=== PATIENT | male | born 1950 | race Caucasian/White ===

== ENCOUNTER 2018-10-23 01:58 | Emergency (ER) | payer MEDICARE, OTHER ==
[2018-10-23] MEDS ORDERED: Lidocaine 2% Jelly 10 ML Urojet MUCMEM ONE (02:52)
[2018-10-23 03:53] LABS: ANION GAP 15.4
--- NOTE | 2018-10-23 04:19 | EDM.PDOC ---
ED HPI GENERAL MEDICAL PROBLEM - General Chief Complaint: Genitourinary Problem Stated Complaint: CANT PEE, BLEEDING Time Seen by Provider: 10/23/18 03:00 Source of Information: Reports: Patient History Limitations: Reports: No Limitations - History of Present Illness INITIAL COMMENTS - FREE TEXT/NARRATIVE: ED ambulatory with c/o unable to urinate. Last 930pm. Report TURP on , home with catheter, removed on Thursday. Since voiding with bloody urine and passing some small clots. No fever or chills. No dizziness. Notes 2nd TURP. First with "eleuterio santamariaer" Left Pelvic Pain Score (Numeric/FACES): 10 Past Medical History Cardiovascular History: Reports: Hypertension Gastrointestinal History: Reports: GERD Genitourinary History: Reports: BPH, Retention, Urinary Endocrine/Metabolic History: Reports: Diabetes, Type II - Past Surgical History Male Surgical History: Reports: TURP-Transurethral Resection of Prostate Social & Family History - Tobacco Use Smoking Status *Q: Unknown Ever Smoked - Caffeine Use Caffeine Use: Reports: Coffee, Soda - Recreational Drug Use Recreational Drug Use: No ED ROS GENERAL - Review of Systems Review Of Systems: ROS reveals no pertinent complaints other than HPI. ED EXAM, RENAL/ - Physical Exam Exam: See Below Exam Limited By: No Limitations General Appearance: Alert, Moderate Distress Eye Exam: Bilateral Eye: EOMI Ears: Normal External Exam, Hearing Grossly Normal Nose: Normal Inspection Throat/Mouth: Normal Inspection Head: Atraumatic, Normocephalic Neck: Normal Inspection, Full Range of Motion Respiratory/Chest: Lungs Clear, Normal Breath Sounds Cardiovascular: Normal Peripheral Pulses, Regular Rate, Rhythm GI/Abdominal: Normal Bowel Sounds, Soft, Tender (suprapubic) Back Exam: Normal Inspection Extremities: Normal Inspection Neurological: Alert, Oriented, Normal Cognition Psychiatric: Normal Affect Skin Exam: Warm, Dry, Intact, Normal Color Course - Vital Signs Last Recorded V/S: Last Vital Signs Temp 97.6 F 10/23/18 02:40 Pulse 109 H 10/23/18 02:40 Resp 18 10/23/18 02:40 BP 171/74 H 10/23/18 02:40 Pulse Ox 97 10/23/18 02:40 - Orders/Labs/Meds Orders: Active Orders 24 hr Category Date Time Status Insert Urinary Catheter [OM.PC] Q24H Care 10/23/18 03:15 Ordered Urinary Catheter Assessment [RC] ASDIRECTED Care 10/23/18 03:11 Active Labs: Laboratory Tests 10/23/18 10/23/18 Range/Units 03:25 03:25 WBC 10.2 H (5.0-10.0) 10^3/uL RBC 4.61 (4.6-6.2) 10^6/uL Hgb 13.6 L (14.0-18.0) g/dL Hct 40.3 (40.0-54.0) % MCV 87.4 (80-100) fL MCH 29.5 (27.0-34.0) pg MCHC 33.7 (33.0-35.0) g/dL Plt Count 234 (150-450) 10^3/uL Neut % (Auto) 66.4 (42.2-75.2) % Lymph % (Auto) 22.2 (20.5-50.1) % [place] % (Auto) 8.6 H (2-8) % Eos % (Auto) 2.5 (1.0-3.0) % Baso % (Auto) 0.3 (0.0-1.0) % Sodium 137 (135-145) mmol/L Potassium 3.4 L (3.6-5.0) mmol/L Chloride 101 (101-111) mmol/L Carbon Dioxide 24.0 (21.0-31.0) mmol/L Anion Gap 15.4 BUN 29 H (7-18) mg/dL Creatinine 1.4 H (0.6-1.3) mg/dL Est Cr Clr Drug Dosing 48.30 mL/min Estimated GFR (MDRD) 50 Glucose 142 H (74-105) mg/dL Calcium 9.7 (8.4-10.2) mg/dl Meds: Medications Discontinued Medications Generic Name Dose Route Start Last Admin Trade Name Freq PRN Reason Stop Dose Admin Lidocaine HCl 10 ml 10/23/18 02:52 10/23/18 03:22 Xylocaine 2% Jelly MUCMEM 10/23/18 02:53 10 ml ONETIME ONE Administration - Re-Assessments/Exams Free Text/Narrative Re-Assessment/Exam: 10/23/18 06:31 Hogan placed, immediate return blood tinged urine. Indwelling catheter left in place. Discharge instructions to patient. Urgent follow up if fever, worsening of blood in urine, or weakness. Departure - Departure Time of Disposition: 04:14 Disposition: Home, Self-Care 01 Condition: Fair Clinical Impression: S/P TURP (status post transurethral resection of prostate), Retention of urine - Discharge Information *PRESCRIPTION DRUG MONITORING PROGRAM REVIEWED*: Not Applicable *COPY OF PRESCRIPTION DRUG MONITORING REPORT IN PATIENT ARELI: Not Applicable Instructions: Indwelling Urinary Catheter Care, Adult, [id number] Forms: ED Department Discharge Additional Instructions: Increase fluid intake Urgent follow up if fever/ chills or catheter not draining and discomfort monitor bleeding if continues, contact son[facility] technician urology at [place] Follow up with urologist Thursday - My Orders Last 24 Hours: My Active Orders 10/23/18 03:11 Urinary Catheter Assessment [RC] ASDIRECTED 10/23/18 03:15 Insert Urinary Catheter [OM.PC] Q24H - Assessment/Plan Last 24 Hours: My Active Orders 10/23/18 03:11 Urinary Catheter Assessment [RC] ASDIRECTED 10/23/18 03:15 Insert Urinary Catheter [OM.PC] Q24H
== END 2018-10-23 04:32 | disposition home or self-care (01) ==
LOC: DL.ED 01:58
DX: R33.9 Retention of urine, unspecified (principal); Z90.79 Acquired absence of other genital organ(s)
CPT/HCPCS: 36415; 51702; 80048; 85025; 99283

== ENCOUNTER 2020-04-10 09:12 | Emergency (ER) | payer MEDICARE, OTHER ==
--- NOTE | 2020-04-10 10:12 | EDM.PDOC ---
ED HPI GENERAL MEDICAL PROBLEM - General Chief Complaint: Chest Pain Stated Complaint: CHRONIC KIDNEY DISESE SENT FROM [facility] Time Seen by Provider: 04/10/20 09:58 Source of Information: Reports: Patient, Family, Provider, RN, RN Notes Reviewed History Limitations: Reports: No Limitations - History of Present Illness INITIAL COMMENTS - FREE TEXT/NARRATIVE: Patient presents to the ED with from [facility] with complaints of chest pain. Per the patient, this chest pain began roughly six weeks ago while hanging dry wall. He states the pain originates in his midline chest and radiates into his left, medial shoulder. He is unable to reproduce the pain and it is transient in nature; he states he wakes with this pain most mornings at 1am when he wakes to urinate. The patient relates this pain is improved with Tylenol 1gm PO x1. He denies shortness of breath, palpitations, vision changes, loss of motor function to the LUE, or paraesthesia to LUE. He does attest to a cardiac history, stating he received two stents in one vessel roughly 10 years ago. He states he does not currently follow with cardiology. He is a former smoker, with a quit date in the "80s." - Related Data Allergies Allergy/AdvReac Type Severity Reaction Status Date / Time Penicillins Allergy unknown Verified 04/12/20 07:57 Home Meds: Home Meds Ascorbic Acid [Vitamin C] 500 mg PO DAILY 04/10/20 [History] Aspirin [Aspirin EC] 81 mg PO BID 04/10/20 [History] Cholecalciferol (Vitamin D3) [Vitamin D3] 100 mcg PO DAILY 04/10/20 [History] Cyanocobalamin (Vitamin B-12) [Vitamin B-12] 6,000 mcg PO DAILY 04/10/20 [History] Finasteride [Proscar] 5 mg PO DAILY 04/10/20 [History] Losartan [Cozaar] 100 mg PO DAILY 04/10/20 [History] Magnesium 250 mg PO DAILY 04/10/20 [History] Magnesium Glycinate [Mag Glycinate] 480 mg PO DAILY 04/10/20 [History] Metoprolol Succinate 100 mg PO DAILY 04/10/20 [History] Multivitamin 2 tab PO DAILY 04/10/20 [History] Sebastian 3,6,9 Combination No.7 [Sebastian Dha] 275 mg PO DAILY 04/10/20 [History] Omeprazole 20 mg PO DAILY 04/10/20 [History] Sildenafil [Revatio] 20 mg PO ASDIRECTED PRN 04/10/20 [History] Zinc Gluconate [Zinc] 30 mg PO DAILY 04/10/20 [History] amLODIPine [Norvasc] 5 mg PO DAILY 04/10/20 [History] atorvaSTATin Calcium [Atorvastatin Calcium] 40 mg PO BEDTIME 04/10/20 [History] hydroCHLOROthiazide [Hydrochlorothiazide] 12.5 mg PO DAILY 04/10/20 [History] metFORMIN [Glucophage] 500 mg PO BID 04/10/20 [History] Past Medical History Cardiovascular History: Reports: Hypertension Gastrointestinal History: Reports: GERD Genitourinary History: Reports: BPH, Retention, Urinary Endocrine/Metabolic History: Reports: Diabetes, Type II - Past Surgical History Male Surgical History: Reports: TURP-Transurethral Resection of Prostate Social & Family History - Caffeine Use Caffeine Use: Reports: Coffee, Soda ED ROS GENERAL - Review of Systems Review Of Systems: Comprehensive ROS is negative, except as noted in HPI. ED EXAM, GENERAL - Physical Exam Exam: See Below Exam Limited By: No Limitations General Appearance: Alert, WD/WN, No Apparent Distress Throat/Mouth: Normal Inspection, Normal Voice, No Airway Compromise Head: Atraumatic, Normocephalic Respiratory/Chest: No Respiratory Distress, Normal Breath Sounds, No Accessory Muscle Use, Chest Non-Tender, Decreased Breath Sounds. No: Crackles, Rales, Rhonchi, Wheezing, Stridor Cardiovascular: Normal Peripheral Pulses, Regular Rate, Rhythm, No Edema, No Gallop, No Murmur, No Rub Peripheral Pulses: 2+: Radial (L), Radial (R) GI/Abdominal: Normal Bowel Sounds, Soft, Non-Tender, No Distention, No Mass (Male) Exam: Deferred Rectal (Males) Exam: Deferred Back Exam: Normal Inspection, Full Range of Motion Extremities: Normal Range of Motion (To left upper extremity), Non-Tender, No Pedal Edema, Normal Capillary Refill Neurological: Alert, Oriented, CN II-XII Intact, Normal Cognition Skin Exam: Warm, Dry, Intact, Normal Color, No Rash. No: Ecchymosis, Erythema, Mottled, Pallor, Petechiae, Rash #1 Interpretation EKG Date: 04/10/20 Time: 09:33 Rhythm: NSR Rate (Beats/Min): 88 [place]: Normal P-Wave: Present QRS: Wide ST-T: Normal QT: Normal Comparison: NA - No Prior EKG (NSR; No evidence of acute ischemia) Course - Vital Signs Last Recorded V/S: Last Vital Signs Temp 98.6 F 04/10/20 09:18 Pulse 84 04/10/20 09:18 Resp 16 04/10/20 09:18 BP 164/81 H 04/10/20 09:18 Pulse Ox 96 04/10/20 09:18 - Orders/Labs/Meds Labs: Laboratory Tests 04/10/20 04/10/20 04/10/20 Range/Units 09:35 09:35 09:35 WBC 7.8 (5.0-10.0) 10^3/uL RBC 4.77 (4.6-6.2) 10^6/uL Hgb 14.0 (14.0-18.0) g/dL Hct 41.5 (40.0-54.0) % MCV 87.0 (80-100) fL MCH 29.4 (27.0-34.0) pg MCHC 33.7 (33.0-35.0) g/dL Plt Count 256 (150-450) 10^3/uL Neut % (Auto) 63.3 (42.2-75.2) % Lymph % (Auto) 22.8 (20.5-50.1) % [place] % (Auto) 9.1 H (2-8) % Eos % (Auto) 4.2 H (1.0-3.0) % Baso % (Auto) 0.6 (0.0-1.0) % Sodium 139 (136-145) mmol/L Potassium 2.9 L (3.5-5.1) mmol/L Chloride 100 (98-107) mmol/L Carbon Dioxide 31 (21-32) mmol/L Anion Gap 10.9 (7-13) mEq/L BUN 13 (7-18) mg/dL Creatinine 1.09 (0.70-1.30) mg/dL Est Cr Clr Drug Dosing 60.14 mL/min Estimated GFR (MDRD) > 60 BUN/Creatinine Ratio 11.9 (No establ ref range) Glucose 184 H (74-99) mg/dL Lactic Acid 2.3 H* (0.4-2.0) mmol/L Calcium 9.3 (8.5-10.1) mg/dL Total Bilirubin 0.5 (0.2-1.0) mg/dL AST 37 (15-37) U/L ALT 64 H (16-63) U/L Alkaline Phosphatase 135 H (46-116) U/L Troponin I 0.033 (0.000-0.056) ng/mL Total Protein 8.0 (6.4-8.2) g/dL Albumin 3.7 (3.4-5.0) g/dL Globulin 4.3 Albumin/Globulin Ratio 0.9 SARS CoV-2 RNA Rapid TAMMY (NEGATIVE) 04/10/20 Range/Units 11:00 WBC (5.0-10.0) 10^3/uL RBC (4.6-6.2) 10^6/uL Hgb (14.0-18.0) g/dL Hct (40.0-54.0) % MCV (80-100) fL MCH (27.0-34.0) pg MCHC (33.0-35.0) g/dL Plt Count (150-450) 10^3/uL Neut % (Auto) (42.2-75.2) % Lymph % (Auto) (20.5-50.1) % [place] % (Auto) (2-8) % Eos % (Auto) (1.0-3.0) % Baso % (Auto) (0.0-1.0) % Sodium (136-145) mmol/L Potassium (3.5-5.1) mmol/L Chloride (98-107) mmol/L Carbon Dioxide (21-32) mmol/L Anion Gap (7-13) mEq/L BUN (7-18) mg/dL Creatinine (0.70-1.30) mg/dL Est Cr Clr Drug Dosing mL/min Estimated GFR (MDRD) BUN/Creatinine Ratio (No establ ref range) Glucose (74-99) mg/dL Lactic Acid (0.4-2.0) mmol/L Calcium (8.5-10.1) mg/dL Total Bilirubin (0.2-1.0) mg/dL AST (15-37) U/L ALT (16-63) U/L Alkaline Phosphatase (46-116) U/L Troponin I (0.000-0.056) ng/mL Total Protein (6.4-8.2) g/dL Albumin (3.4-5.0) g/dL Globulin Albumin/Globulin Ratio SARS CoV-2 RNA Rapid TAMMY Negative (NEGATIVE) Meds: Medications Discontinued Medications Generic Name Dose Route Start Last Admin Trade Name Freq PRN Reason Stop Dose Admin Iopamidol 100 ml 04/10/20 11:32 04/10/20 12:21 Isovue-300 (61%) IVPUSH 04/10/20 11:33 75 ml ONETIME ONE Administration Potassium Chloride 20 meq 04/10/20 11:59 04/10/20 12:24 Klor-Con 10 PO 04/10/20 12:00 20 meq ONETIME ONE Administration Sodium Chloride 10 ml 04/10/20 11:32 Saline Flush FLUSH ASDIRECTED PRN Keep Vein Open - Radiology Interpretation Free Text/Narrative:: [facility] Final Radiology Report Call: [phone] assistance Online chat: [email or web address] Name: REBECA NG Age: 69Years M Date: 04/10/2020 SSN: -- : [id number] Study: CR CHEST 1V FRONTAL Requesting Physician: Shruti Reddy Images: 1 Addl Studies: Provided Clinical History: Chest pain Contrast: Contrast Medium: Contrast Amount: Contrast Method: CONFIDENTIALITY STATEMENT This report is intended only for use by the referring physician, and only in accordance with law. If you received this in error, call [phone]. Page 1 of 1 PROCEDURE INFORMATION: Exam: XR Chest, 1 View Exam date and time: 04/10/2020 10:01 AM Age: 69 years old Clinical indication: Chest pain TECHNIQUE: Imaging protocol: XR of the chest Views: 1 view. COMPARISON: No relevant prior studies available. FINDINGS: Lungs: Prominent left hilum may represent adenopathy or mass. Pleural space: Unremarkable. No pleural effusion. No pneumothorax. Heart/Mediastinum: The cardiac silhouette appears of normal size and configuration. Diaphragm: Elevated left hemidiaphragm. Bones/joints: Unremarkable. Soft tissues: There is volume loss with the left chest. IMPRESSION: Prominent left hilum may represent adenopathy or mass. Thank you for allowing us to participate in the care of your patient. Dictated and Authenticated by: Felix Blanton MD 04/10/2020 10:13 AM Central Time ([place] & [place]) - Re-Assessments/Exams Free Text/Narrative Re-Assessment/Exam: 04/10/20 09:25 CBC, CMP, Lactic, BCx1, UA, Chest XR, EKG 04/10/20 09:33 EKG normal 04/10/20 10:14 Lactic elevated; COVID swab pending. K 2.9 04/10/20 11:10 CXR reveals mass in left hilum, Will obtain Chest CT; COVID negative 04/10/20 11:58 Patient discharged. To follow up with primary care provider regarding CT results. Departure - Departure Time of Disposition: 12:25 Disposition: Home, Self-Care 01 Clinical Impression: Hypokalemia Chest pain Qualifiers: Chest pain type: unspecified Qualified Code(s): R07.9 - Chest pain, unspecified Instructions: Nonspecific Chest Pain, Adult, [id number] Forms: ED Department Discharge Additional Instructions: Follow up in clinic with primary care provider regarding findings of CT, MICHEAL
[2020-04-10 10:26] LABS: ANION GAP 10.9 mEq/L (7-13); CHLORIDE,CL 100 mmol/L (98-107); SODIUM,NA 139 mmol/L (136-145)
[2020-04-10] MEDS ORDERED: Sodium Chloride 0.9% 10 ML Syringe FLUSH PRN (11:32)
[2020-04-10] MEDS ORDERED: Iopamidol 612 MG/ML 100 ML Bottle IVPUSH ONE (11:32)
[2020-04-10] MEDS ORDERED: Potassium Chloride 10 MEQ Tab.ER PO ONE (11:59)
--- NOTE | 2020-04-10 12:45 | CT ---
EXAMINATION: Chest w Cont SEX: Male AGE: 69 years CLINICAL HISTORY: 69-year-old hypertensive 202 pound diabetic male with chest pain and "prominent left hilum" demonstrated on plain film CXR earlier today. History of prostate surgery. Scan technique: Volume acquisition of data from the chest (bony thorax, lungs and mediastinum) obtained during the intravenous administration 75 cc nonionic Isovue contrast 3 cc/s via injector while patient was lying supine on the Siemens multi slice scanner [facility]. All data archived in the PACS system for storage, reformatting axial/sagittal/coronal planes and study. Interpretation: Abnormal. 1. Generalized pleural parenchymal fibrosis, peribronchial "cuffing", subpleural cystic lesions (RUL) and asymmetric elevation left hemidiaphragm with underlying left lower lobe (LLL) atelectasis. 2. *Extensive left perihilar and subcarinal middle mediastinal lymphadenopathy (mass?). 3. Isolated small 12 mm peripheral pleural-based "nodule" (infarct?) anteriorly at the upper lobe (SUDHIR). 4. No other discrete parenchymal lung nodule or mass lesion. No dependent malignant pleural effusion. 4. Normal cardiac silhouette. Atheromatous calcifications normal caliber thoracic aorta. No pulmonary vascular congestion, alveolar edema, or pericardial or pleural effusions. Coronary artery calcifications. 5. Note: *Suspicious inhomogeneously dense liver (multiple scattered areas of decreased attenuation) suggest probability of metastatic disease. Gallbladder, stomach and spleen unremarkable. No ascites. 6. Multilevel disc disease and chronic hypertrophic spondylosis lower cervical and entire thoracic spine. CONCLUSION: Probable lung malignancy with metastatic liver lesions. Extensive pleural parenchymal fibrosis (smoker?).
== END 2020-04-10 13:28 | disposition home or self-care (01) ==
LOC: DL.ED 09:12
DX: R07.9 Chest pain, unspecified (principal); E87.6 Hypokalemia; I10 Essential (primary) hypertension; K21.9 Gastro-esophageal reflux disease without esophagitis; E11.9 Type 2 diabetes mellitus without complications; Z79.84 Long term (current) use of oral hypoglycemic drugs; Z79.899 Other long term (current) drug therapy; Z79.82 Long term (current) use of aspirin; Z20.828 Contact with and (suspected) exposure to other viral communicable diseases
CPT/HCPCS: 36415; 71045; 71260; 80053; 83605; 84484; 85025; 87040; 93005; 93010; 99284; 99285; A9270; Q9967; U0002

== ENCOUNTER 2020-04-12 07:37 | Emergency (ER) | payer MEDICARE, OTHER ==
--- NOTE | 2020-04-12 08:41 | EDM.PDOC ---
ED HPI GENERAL MEDICAL PROBLEM - General Chief Complaint: Chest Pain Stated Complaint: CHEST PAIN Time Seen by Provider: 04/12/20 08:30 Source of Information: Reports: Patient - History of Present Illness INITIAL COMMENTS - FREE TEXT/NARRATIVE: 69 year old male who present to the ED with complaints of chest pain that began 6 hours ago. He has had chest pain for the past six weeks intermittently and rel ief with Tylenol 1000 mg. Patient rates pain as a 10/10 and pain is across his chest into a left shoulder and left side of the neck. He has a history of DM, CAD, HTN with new left lobe mass that was diagnosed two days ago. Waiting to get into pulmonology for a biopsy. He has tried Tylenol 1000 mg with no relief. Admits to a history of CAD with two stents placed ten years. He denies any history of NV or stroke. Quit smoking in . She denies any SOB, palpitation. leg swelling, cough, fevers/chills. Negative for COVID-19 two days ago. He was seen in the ER for complaints of the same two days ago. 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 Chest Pain Score (Numeric/FACES): 10 - Related Data Allergies Allergy/AdvReac Type Severity Reaction Status Date / Time Penicillins Allergy unknown Verified 04/12/20 07:57 Home Meds: Home Meds Ascorbic Acid [Vitamin C] 500 mg PO DAILY 04/10/20 [History] Aspirin [Aspirin EC] 81 mg PO BID 04/10/20 [History] Cholecalciferol (Vitamin D3) [Vitamin D3] 100 mcg PO DAILY 04/10/20 [History] Cyanocobalamin (Vitamin B-12) [Vitamin B-12] 6,000 mcg PO DAILY 04/10/20 [History] Finasteride [Proscar] 5 mg PO DAILY 04/10/20 [History] Losartan [Cozaar] 100 mg PO DAILY 04/10/20 [History] Magnesium 250 mg PO DAILY 04/10/20 [History] Magnesium Glycinate [Mag Glycinate] 480 mg PO DAILY 04/10/20 [History] Metoprolol Succinate 100 mg PO DAILY 04/10/20 [History] Multivitamin 2 tab PO DAILY 04/10/20 [History] [place] 3,6,9 Combination No.7 [[place] Dha] 275 mg PO DAILY 04/10/20 [History] Omeprazole 20 mg PO DAILY 04/10/20 [History] Sildenafil [Revatio] 20 mg PO ASDIRECTED PRN 04/10/20 [History] Zinc Gluconate [Zinc] 30 mg PO DAILY 04/10/20 [History] amLODIPine [Norvasc] 5 mg PO DAILY 04/10/20 [History] atorvaSTATin Calcium [Atorvastatin Calcium] 40 mg PO BEDTIME 04/10/20 [History] hydroCHLOROthiazide [Hydrochlorothiazide] 12.5 mg PO DAILY 04/10/20 [History] metFORMIN [Glucophage] 500 mg PO BID 04/10/20 [History] Past Medical History HEENT History: Reports: None Cardiovascular History: Reports: Hypertension Respiratory History: Reports: None Gastrointestinal History: Reports: GERD Genitourinary History: Reports: BPH, Retention, Urinary Other Genitourinary History: hematuria Musculoskeletal History: Reports: None Neurological History: Reports: None Psychiatric History: Reports: None Endocrine/Metabolic History: Reports: Diabetes, Type II Hematologic History: Reports: None Immunologic History: Reports: None Oncologic (Cancer) History: Reports: None Dermatologic History: Reports: None - Past Surgical History Male Surgical History: Reports: TURP-Transurethral Resection of Prostate Social & Family History - Caffeine Use Caffeine Use: Reports: Coffee, Soda ED ROS GENERAL - Review of Systems Review Of Systems: Comprehensive ROS is negative, except as noted in HPI. ED EXAM, GENERAL - Physical Exam Exam: See Below Exam Limited By: No Limitations General Appearance: Alert, Moderate Distress Eye Exam: Bilateral Eye: Normal Inspection, PERRL Ears: Normal External Exam, Normal Canal, Hearing Grossly Normal, Normal TMs Nose: Normal Inspection, Normal Mucosa Throat/Mouth: Normal Inspection, Normal Lips, Normal Oropharynx, Normal Voice, No Airway Compromise Head: Atraumatic, Normocephalic Neck: Normal Inspection, Supple, Non-Tender Respiratory/Chest: No Respiratory Distress, Crackles (mild crackles in the left lower lobes) Cardiovascular: Normal Peripheral Pulses, Regular Rate, Rhythm, No Edema, No JVD, No Murmur Peripheral Pulses: 4+: Posterior Tibial (L), Posterior Tibial (R), Dorsalis Pedis (L), Dorsalis Pedis (R) GI/Abdominal: Normal Bowel Sounds, Soft, Non-Tender Back Exam: Normal Inspection Extremities: Normal Inspection, Normal Range of Motion Neurological: Alert, Oriented Psychiatric: Normal Affect, Normal Mood Skin Exam: Warm, Intact Lymphatic: No Adenopathy Course - Vital Signs Last Recorded V/S: Last Vital Signs Temp 98.3 F 04/12/20 11:20 Pulse 81 04/12/20 11:20 Resp 16 04/12/20 11:20 BP 159/87 H 04/12/20 11:20 Pulse Ox 98 04/12/20 11:20 - Orders/Labs/Meds Labs: Laboratory Tests 04/12/20 04/12/20 04/12/20 Range/Units 08:13 08:13 08:13 WBC 8.9 (5.0-10.0) 10^3/uL RBC 4.99 (4.6-6.2) 10^6/uL Hgb 14.5 (14.0-18.0) g/dL Hct 43.7 (40.0-54.0) % MCV 87.6 (80-100) fL MCH 29.1 (27.0-34.0) pg MCHC 33.2 (33.0-35.0) g/dL Plt Count 223 (150-450) 10^3/uL Neut % (Auto) 74.5 (42.2-75.2) % Lymph % (Auto) 16.2 L (20.5-50.1) % [place] % (Auto) 6.7 (2-8) % Eos % (Auto) 2.2 (1.0-3.0) % Baso % (Auto) 0.4 (0.0-1.0) % APTT 27.9 (22.0-34.0) SEC Sodium 136 (136-145) mmol/L Potassium 2.9 L (3.5-5.1) mmol/L Chloride 97 L (98-107) mmol/L Carbon Dioxide 30 (21-32) mmol/L Anion Gap 11.9 (7-13) mEq/L BUN 15 (7-18) mg/dL Creatinine 1.09 (0.70-1.30) mg/dL Est Cr Clr Drug Dosing 61.15 mL/min Estimated GFR (MDRD) > 60 BUN/Creatinine Ratio 13.8 (No establ ref range) Glucose 196 H (74-99) mg/dL Calcium 8.7 (8.5-10.1) mg/dL Total Bilirubin 0.6 (0.2-1.0) mg/dL AST 48 H (15-37) U/L ALT 75 H (16-63) U/L Alkaline Phosphatase 149 H (46-116) U/L Troponin I 0.071 H* (0.000-0.056) ng/mL Total Protein 7.8 (6.4-8.2) g/dL Albumin 3.6 (3.4-5.0) g/dL Globulin 4.2 Albumin/Globulin Ratio 0.9 10//20 Range/Units 12:25 WBC (5.0-10.0) 10^3/uL RBC (4.6-6.2) 10^6/uL Hgb (14.0-18.0) g/dL Hct (40.0-54.0) % MCV (80-100) fL MCH (27.0-34.0) pg MCHC (33.0-35.0) g/dL Plt Count (150-450) 10^3/uL Neut % (Auto) (42.2-75.2) % Lymph % (Auto) (20.5-50.1) % [place] % (Auto) (2-8) % Eos % (Auto) (1.0-3.0) % Baso % (Auto) (0.0-1.0) % APTT (22.0-34.0) SEC Sodium (136-145) mmol/L Potassium (3.5-5.1) mmol/L Chloride (98-107) mmol/L Carbon Dioxide (21-32) mmol/L Anion Gap (7-13) mEq/L BUN (7-18) mg/dL Creatinine (0.70-1.30) mg/dL Est Cr Clr Drug Dosing mL/min Estimated GFR (MDRD) BUN/Creatinine Ratio (No establ ref range) Glucose (74-99) mg/dL Calcium (8.5-10.1) mg/dL Total Bilirubin (0.2-1.0) mg/dL AST (15-37) U/L ALT (16-63) U/L Alkaline Phosphatase (46-116) U/L Troponin I 3.046 H* (0.000-0.056) ng/mL Total Protein (6.4-8.2) g/dL Albumin (3.4-5.0) g/dL Globulin Albumin/Globulin Ratio Meds: Medications Discontinued Medications Generic Name Dose Route Start Last Admin Trade Name Gucciq PRN Reason Stop Dose Admin Aspirin 324 mg 04/12/20 09:18 04/12/20 09:29 Aspirin PO 04/12/20 09:19 324 mg ONETIME ONE Administration Heparin Sodium (Porcine) 4,000 units 04/12/20 09:43 04/12/20 09:54 Heparin Sodium IVPUSH 04/12/20 09:44 4,000 units .BOLUS ONE Administration Hydromorphone HCl 1 mg 04/12/20 08:42 04/12/20 17:59 Dilaudid IVPUSH 04/12/20 08:43 Not Given ONETIME ONE Heparin Sodium/Sodium Chloride 25,000 units in 500 mls @ 21.947 mls/hr 04/12/20 09:45 04/12/20 09:53 Heparin 25,000 Units In 1/2 Ns 500 Ml IV 12 units/kg/hr TITRATE DANNY 21.947 mls/hr Administration Protocol 12 UNITS/KG/HR Potassium Chloride 10 meq/ 100 mls @ 100 mls/hr 04/12/20 09:55 04/12/20 11:30 Premix IV 04/12/20 10:54 Infused ONETIME ONE Infusion Morphine Sulfate 2 mg 04/12/20 09:17 04/12/20 09:28 Morphine IVPUSH 04/12/20 09:18 2 mg ONETIME ONE Administration - Re-Assessments/Exams Free Text/Narrative Re-Assessment/Exam: Reviewed Exam findings and results of today labs, EKG, chest xray with patient and his . Morphine 2 mg IV and Aspirin 324 mg administered with relief in pain. Consulted [facility] are currently on diversion. accepted patient for transfer. Heparin drip initiated. K IV administered for K of 2.9. Patient in Agreement to plan. 04/12/20 10:50 Departure - Departure Time of Disposition: 14:30 Disposition: DC/Tfer to Acute Hospital 02 Reason for Transfer *Q: Other (angiogram) Condition: Fair Clinical Impression: Non-STEMI (non-ST elevated myocardial infarction), Hypokalemia Referrals: Carrie Bates NP [Primary Care Provider] - Forms: ED Department Discharge, Interfacility Transfer CHRISTOPH Sepsis Event Note (ED) - Focused Exam Vital Signs: Vital Signs Temp Pulse Resp BP Pulse Ox 04/12/20 11:20 98.3 F 81 16 159/87 H 98 04/12/20 10:24 98 F 85 16 163/81 H 96 04/12/20 09:32 98.9 F 85 16 161/78 H 95 04/12/20 07:44 97.2 F 92 16 177/93 H 98
[2020-04-12] MEDS ORDERED: HYDROmorphone 1 MG/ML Syringe IVPUSH ONE (08:42)
[2020-04-12 08:51] LABS: ANION GAP 11.9 mEq/L (7-13); CHLORIDE,CL 97 mmol/L (98-107); SODIUM,NA 136 mmol/L (136-145)
[2020-04-12] MEDS ORDERED: Morphine 2 MG/ML SYRINGE IVPUSH ONE (09:17)
[2020-04-12] MEDS ORDERED: Aspirin 81 MG Tab.Chew PO ONE (09:18)
[2020-04-12] MEDS ORDERED: Heparin Sodium 5,000 Units/ML Vial IVPUSH ONE (09:43)
[2020-04-12] MEDS ORDERED: Heparin Sodium/0.45% NaCl 25,000 UNITS/500 ML BAG IV SCH (09:45)
[2020-04-12] MEDS ORDERED: Potassium Chloride 10 MEQ in Premix Bag 1 BAG IV ONE (09:55)
--- NOTE | 2020-04-12 11:30 | CR ---
PROCEDURE INFORMATION: Exam: XR Chest, 1 View Exam date and time: 04/12/2020 11:04 AM Age: 69 years old Clinical indication: Chest pain; Type not specified TECHNIQUE: Imaging protocol: XR of the chest Views: 1 view. COMPARISON: CR Chest 1V Frontal 04/10/2020 10:01 AM FINDINGS: Lungs: There is airspace opacification in left lung base, probably representing chronic atelectasis but the presence of other disease should be better excluded with clinical correlation and/or a lateral view. Pleural space: Normal. Heart/Mediastinum: Normal heart and cardiomediastinal silhouette. Vasculature: Normal pulmonary vessel caliber. Normal aorta. Diaphragm: Left hemidiaphragm is chronically and moderately elevated. Bones/joints: The bones are intact. IMPRESSION: Left hemidiaphragm elevation and atelectasis. Clinical correlation for other disease in the left lower lobe is recommended and a lateral view should be obtained if correlation is uncertain or chest pain is left-sided.
== END 2020-04-12 14:19 ==
LOC: DL.ED 07:37
DX: I21.4 Non-ST elevation (NSTEMI) myocardial infarction (principal); E87.6 Hypokalemia; I10 Essential (primary) hypertension; E11.9 Type 2 diabetes mellitus without complications; K21.9 Gastro-esophageal reflux disease without esophagitis; I25.10 Atherosclerotic heart disease of native coronary artery without angina pectoris; Z88.0 Allergy status to penicillin; Z79.82 Long term (current) use of aspirin; Z79.84 Long term (current) use of oral hypoglycemic drugs; Z79.899 Other long term (current) drug therapy
CPT/HCPCS: 36415; 71045; 80053; 84484; 85025; 85730; 93005; 96365; 96366; 96368; 96375; 99285; A9270; J1644; J2270; J3480

== ENCOUNTER 2020-05-02 06:20 | Emergency (ER) | payer MEDICARE, OTHER ==
[2020-05-02] MEDS ORDERED: Aspirin 81 MG Tab.Chew PO ONE (06:28)
[2020-05-02] MEDS ORDERED: Sodium Chloride 0.9% 1,000 ML IV ONE (06:28)
[2020-05-02] MEDS ORDERED: Nitroglycerin 0.4 MG Tab.SL SL PRN (06:28)
--- NOTE | 2020-05-02 07:15 | EDM.PDOC ---
<PierceJessica quezada Nathaniel - Last Filed: 05/02/20 07:15> ED HPI GENERAL MEDICAL PROBLEM - General Chief Complaint: Chest Pain Stated Complaint: HEART PROBLEMS Time Seen by Provider: 05/02/20 06:40 Source of Information: Reports: Patient History Limitations: Reports: No Limitations - History of Present Illness INITIAL COMMENTS - FREE TEXT/NARRATIVE: ED with c/o burning chest pain, worse under left axilla. Rated 7/10 at onset. Took one nitro at home with complete relief then pain started to come back so came to ED. Recent CO and stent x 1 last week. No nausea or sweating. No SOB or cough. No palpitations Left Arm Pain Score (Numeric/FACES): 4 - Related Data Allergies Allergy/AdvReac Type Severity Reaction Status Date / Time Penicillins Allergy unknown Verified 04/12/20 07:57 Home Meds: Home Meds Ascorbic Acid [Vitamin C] 500 mg PO DAILY 04/10/20 [History] Aspirin [Aspirin EC] 81 mg PO BID 04/10/20 [History] Cholecalciferol (Vitamin D3) [Vitamin D3] 100 mcg PO DAILY 04/10/20 [History] Cyanocobalamin (Vitamin B-12) [Vitamin B-12] 6,000 mcg PO DAILY 04/10/20 [History] Finasteride [Proscar] 5 mg PO DAILY 04/10/20 [History] Losartan [Cozaar] 100 mg PO DAILY 04/10/20 [History] Magnesium 250 mg PO DAILY 04/10/20 [History] Magnesium Glycinate [Mag Glycinate] 480 mg PO DAILY 04/10/20 [History] Metoprolol Succinate 200 mg PO DAILY 04/10/20 [History] Multivitamin 2 tab PO DAILY 04/10/20 [History] [place] 3,6,9 Combination No.7 [[place] Dha] 275 mg PO DAILY 04/10/20 [History] Omeprazole 20 mg PO DAILY 04/10/20 [History] Sildenafil [Revatio] 20 mg PO ASDIRECTED PRN 04/10/20 [History] Zinc Gluconate [Zinc] 30 mg PO DAILY 04/10/20 [History] amLODIPine [Norvasc] 5 mg PO DAILY 04/10/20 [History] atorvaSTATin Calcium [Atorvastatin Calcium] 40 mg PO BEDTIME 04/10/20 [History] hydroCHLOROthiazide [Hydrochlorothiazide] 12.5 mg PO DAILY 04/10/20 [History] metFORMIN [Glucophage] 500 mg PO BID 04/10/20 [History] Nitroglycerin [Nitrostat] 0.4 mg SL ASDIRECTED 05/02/20 [History] Past Medical History HEENT History: Reports: None Cardiovascular History: Reports: Hypertension, Stents Respiratory History: Reports: None Gastrointestinal History: Reports: GERD Genitourinary History: Reports: BPH, Retention, Urinary Other Genitourinary History: hematuria Musculoskeletal History: Reports: None Neurological History: Reports: None Psychiatric History: Reports: None Endocrine/Metabolic History: Reports: Diabetes, Type II Hematologic History: Reports: None Immunologic History: Reports: None Oncologic (Cancer) History: Reports: None Dermatologic History: Reports: None - Infectious Disease History Infectious Disease History: Reports: Chicken Pox - Past Surgical History Head Surgeries/Procedures: Reports: None Male Surgical History: Reports: TURP-Transurethral Resection of Prostate Social & Family History - Tobacco Use Tobacco Use Status *Q: Never Tobacco User Second Hand Smoke Exposure: No - Caffeine Use Caffeine Use: Reports: None - Recreational Drug Use Recreational Drug Use: No ED ROS GENERAL - Review of Systems Review Of Systems: Comprehensive ROS is negative, except as noted in HPI. ED EXAM, GENERAL - Physical Exam Exam: See Below Exam Limited By: No Limitations General Appearance: Alert, Anxious, Mild Distress Eye Exam: Bilateral Eye: EOMI Ears: Normal External Exam, Hearing Grossly Normal Nose: Normal Inspection, Normal Mucosa Throat/Mouth: Normal Inspection, Normal Lips Head: Atraumatic, Normocephalic Neck: Normal Inspection Respiratory/Chest: No Respiratory Distress, Lungs Clear, Normal Breath Sounds Cardiovascular: Normal Peripheral Pulses, Regular Rate, Rhythm GI/Abdominal: Normal Bowel Sounds, Soft Extremities: Normal Inspection Neurological: Alert, Oriented, Normal Reflexes Psychiatric: Normal Affect, Normal Mood, Anxious (mild) Skin Exam: Warm, Dry, Intact, Normal Color, Other (bruise left abdomen) Course - Re-Assessments/Exams Free Text/Narrative Re-Assessment/Exam: 05/02/20 07:14 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 Patient reporting pain improving since presentation. 08/29. Departure - Departure Disposition: Home, Self-Care 01 Clinical Impression: Atypical chest pain Forms: ED Department Discharge Additional Instructions: Follow up with cardiology and your primary care provider regarding today's visit. Drink plenty of water to stay hydrated. Your magnesium was a little low today - eat some almonds, cashews, pumpkin seeds, or peanuts to bring that level back to normal. Return to the emergency department with any return of chest pain, shortness of breath, or palpitations. Sepsis Event Note (ED) - Evaluation Sepsis Screening Result: No Definite Risk <DerianShruti willson - Last Filed: 05/02/20 07:48> #1 Interpretation EKG Date: 05/02/20 Time: 06:32 Rhythm: NSR Rate (Beats/Min): 81 [place]: Normal P-Wave: Present QRS: Wide ST-T: Normal QT: Normal Comparison: No Change (NSR; No evidence of acute ischemia) Course - Vital Signs Last Recorded V/S: Last Vital Signs Temp 98.8 F 05/02/20 06:32 Pulse 88 05/02/20 06:32 Resp 18 05/02/20 06:32 BP 184/87 H 05/02/20 06:32 Pulse Ox 97 05/02/20 06:32 - Orders/Labs/Meds Orders: Active Orders 24 hr Category Date Time Status EKG Documentation Completion [RC] STAT Care 05/02/20 06:26 Active Nitroglycerin [Nitrostat] Med 05/02/20 06:28 Active 0.4 mg SL ONETIME PRN Sodium Chloride 0.9% [Normal Saline] 1,000 ml Med 05/02/20 06:28 Active IV .BOLUS Medication Orders Sodium Chloride (Normal Saline) 1,000 mls @ 50 mls/hr IV .BOLUS ONE Stop: 05/03/20 02:27 Last Admin: 05/02/20 07:17 Dose: 50 mls/hr Documented by: PINDREN Nitroglycerin (Nitrostat) 0.4 mg SL ONETIME PRN PRN Reason: Chest Pain Labs: Laboratory Tests 05/02/20 05/02/20 05/02/20 Range/Units 06:29 06:29 06:29 WBC 8.2 (5.0-10.0) 10^3/uL RBC 4.36 L (4.6-6.2) 10^6/uL Hgb 12.6 L D (14.0-18.0) g/dL Hct 38.7 L (40.0-54.0) % MCV 88.8 (80-100) fL MCH 28.9 (27.0-34.0) pg MCHC 32.6 L (33.0-35.0) g/dL Plt Count 269 (150-450) 10^3/uL Neut % (Auto) 59.3 (42.2-75.2) % Lymph % (Auto) 25.1 (20.5-50.1) % [place] % (Auto) 10.5 H (2-8) % Eos % (Auto) 4.0 H (1.0-3.0) % Baso % (Auto) 1.1 H (0.0-1.0) % PT 10.9 (9.0-12.0) SEC INR 1.2 (0.9-1.2) Sodium 140 (136-145) mmol/L Potassium 3.6 (3.5-5.1) mmol/L Chloride 101 (98-107) mmol/L Carbon Dioxide 28 (21-32) mmol/L Anion Gap 14.6 H (7-13) mEq/L BUN 16 (7-18) mg/dL Creatinine 1.10 (0.70-1.30) mg/dL Est Cr Clr Drug Dosing 59.59 mL/min Estimated GFR (MDRD) > 60 BUN/Creatinine Ratio 14.5 (No establ ref range) Glucose 110 H (74-99) mg/dL Calcium 9.5 (8.5-10.1) mg/dL Magnesium 1.6 L (1.8-2.4) mg/dL Total Bilirubin 0.6 (0.2-1.0) mg/dL AST 45 H (15-37) U/L ALT 58 (16-63) U/L Alkaline Phosphatase 194 H (46-116) U/L Creatine Kinase 90 (39-308) U/L Troponin I < 0.017 (0.000-0.056) ng/mL B-Natriuretic Peptide 114 H (0-100) pg/ml Total Protein 7.8 (6.4-8.2) g/dL Albumin 3.4 (3.4-5.0) g/dL Globulin 4.4 Albumin/Globulin Ratio 0.8 Amylase 41 (25-115) U/L Lipase 133 (73-393) U/L Meds: Medications Generic Name Dose Route Start Last Admin Trade Name Freq PRN Reason Stop Dose Admin Sodium Chloride 1,000 mls @ 50 mls/hr 05/02/20 06:28 05/02/20 07:17 Normal Saline IV 05/03/20 02:27 50 mls/hr .BOLUS ONE Administration Nitroglycerin 0.4 mg 05/02/20 06:28 Nitrostat SL ONETIME PRN Chest Pain Discontinued Medications Generic Name Dose Route Start Last Admin Trade Name Freq PRN Reason Stop Dose Admin Aspirin 324 mg 05/02/20 06:28 05/02/20 07:16 Aspirin PO 05/02/20 06:29 324 mg ONETIME ONE Administration - Re-Assessments/Exams Free Text/Narrative Re-Assessment/Exam: 05/02/20 07:39 Discussed EKG and laboratory findings with patient. He states his pain in gone and would like to go home. Will discharge patient home with instructions to follow up with cardiology regarding today's visit. Departure - Departure Time of Disposition: 07:46 Condition: Good Sepsis Event Note (ED) - Focused Exam Vital Signs: Vital Signs Temp Pulse Resp BP Pulse Ox 05/02/20 06:32 98.8 F 88 18 184/87 H 97
--- NOTE | 2020-05-02 07:20 | CR ---
PROCEDURE INFORMATION: Exam: XR Chest, 1 View Exam date and time: 05/02/2020 7:02 AM Age: 69 years old Clinical indication: Chest pain; Type not specified TECHNIQUE: Imaging protocol: XR of the chest Views: 1 view. COMPARISON: 1. CR Chest 1V Frontal 04/12/2020 11:[address] Chest w Cont 04/10/2020 11:55 AM 3. CR Chest 1V Frontal 04/10/2020 10:01 AM FINDINGS: Lungs: Multifocal changes in the lungs including possible lung malignancy, emphysema, atelectasis, and a pleural-based mass were better documented on the recent CT. Left basilar increased density from hemidiaphragm elevation may be due to atelectasis. There is no convincing pneumonia or pulmonary edema. Pleural space: Unremarkable. No pleural effusion. No pneumothorax. Heart/Mediastinum: Hilar and mediastinal prominence is unchanged and consistent with previously documented adenopathy. Diaphragm: The left hemidiaphragm remains elevated. Bones/joints: Unremarkable for age. IMPRESSION: 1. Similar appearance of the chest which has limited radiographic assessment of previously documented possible lung malignancy superimposed on chronic lung disease. 2. Persistently enlarged hilar and mediastinal regions consistent with previously documented adenopathy.
[2020-05-02 07:21] LABS: ANION GAP 14.6 mEq/L (7-13); CHLORIDE,CL 101 mmol/L (98-107); SODIUM,NA 140 mmol/L (136-145)
== END 2020-05-02 07:53 | disposition home or self-care (01) ==
LOC: DL.ED 06:20
DX: R07.89 Other chest pain (principal); I10 Essential (primary) hypertension; K21.9 Gastro-esophageal reflux disease without esophagitis; E11.9 Type 2 diabetes mellitus without complications; Z79.84 Long term (current) use of oral hypoglycemic drugs; Z79.899 Other long term (current) drug therapy; Z79.82 Long term (current) use of aspirin; Z88.0 Allergy status to penicillin
CPT/HCPCS: 36415; 71045; 80053; 82150; 82550; 83690; 83735; 83880; 84484; 85025; 85610; 93005; 99285-25; A9270-GY; J7030

== ENCOUNTER 2020-06-28 09:47 | Emergency (ER) | payer MEDICARE, OTHER ==
--- NOTE | 2020-06-28 09:53 | EDM.PDOC ---
ED HPI GENERAL MEDICAL PROBLEM - General Chief Complaint: ENT Problem Stated Complaint: NOSE BLEED WONT STOP Time Seen by Provider: 06/28/20 09:49 Source of Information: Reports: Patient, RN, RN Notes Reviewed History Limitations: Reports: No Limitations - History of Present Illness INITIAL COMMENTS - FREE TEXT/NARRATIVE: Pt presents to ER with c/o a left sided nose bleed that he cannot get to stop. Pt states it began at 0800HRS and he has pinched his nose for over 30 mins. at a time but it keeps dripping blood. Denies injury. Onset: Today Duration: Constant Location: Reports: Other (Nose) Quality: Reports: Other (No pain) Severity: Severe Improves with: Reports: None Worsens with: Reports: None Associated Symptoms: Reports: No Other Symptoms - Related Data Allergies Allergy/AdvReac Type Severity Reaction Status Date / Time Penicillins Allergy unknown Verified 06/28/20 09:54 Home Meds: Home Meds Ascorbic Acid [Vitamin C] 500 mg PO DAILY 04/10/20 [History] Aspirin [Aspirin EC] 81 mg PO BID 04/10/20 [History] Cholecalciferol (Vitamin D3) [Vitamin D3] 100 mcg PO DAILY 04/10/20 [History] Cyanocobalamin (Vitamin B-12) [Vitamin B-12] 6,000 mcg PO DAILY 04/10/20 [History] Finasteride [Proscar] 5 mg PO DAILY 04/10/20 [History] Losartan [Cozaar] 100 mg PO DAILY 04/10/20 [History] Magnesium 250 mg PO DAILY 04/10/20 [History] Magnesium Glycinate [Mag Glycinate] 480 mg PO DAILY 04/10/20 [History] Metoprolol Succinate 200 mg PO DAILY 04/10/20 [History] Multivitamin 2 tab PO DAILY 04/10/20 [History] [place] 3,6,9 Combination No.7 [[place] Dha] 275 mg PO DAILY 04/10/20 [History] Omeprazole 20 mg PO DAILY 04/10/20 [History] Sildenafil [Revatio] 20 mg PO ASDIRECTED PRN 04/10/20 [History] Zinc Gluconate [Zinc] 30 mg PO DAILY 04/10/20 [History] amLODIPine [Norvasc] 5 mg PO DAILY 04/10/20 [History] atorvaSTATin Calcium [Atorvastatin Calcium] 40 mg PO BEDTIME 04/10/20 [History] metFORMIN [Glucophage] 500 mg PO BID 04/10/20 [History] Nitroglycerin [Nitrostat] 0.4 mg SL ASDIRECTED 05/02/20 [History] Clopidogrel Bisulfate [Plavix] 75 mg PO DAILY 06/28/20 [History] Pantoprazole Sodium [Protonix] 20 mg PO DAILY 06/28/20 [History] Tamsulosin HCl 0.4 mg PO DAILY 06/28/20 [History] Past Medical History HEENT History: Reports: None Cardiovascular History: Reports: Hypertension, Stents Respiratory History: Reports: None Gastrointestinal History: Reports: GERD Genitourinary History: Reports: BPH, Retention, Urinary Other Genitourinary History: hematuria Musculoskeletal History: Reports: None Neurological History: Reports: None Psychiatric History: Reports: None Endocrine/Metabolic History: Reports: Diabetes, Type II Hematologic History: Reports: None Immunologic History: Reports: None Oncologic (Cancer) History: Reports: None Dermatologic History: Reports: None - Infectious Disease History Infectious Disease History: Reports: Chicken Pox - Past Surgical History Head Surgeries/Procedures: Reports: None Male Surgical History: Reports: TURP-Transurethral Resection of Prostate Social & Family History - Family History Family Medical History: No Pertinent Family History - Caffeine Use Caffeine Use: Reports: None - Living Situation & Occupation Occupation: Retired ED ROS ENT - Review of Systems Review Of Systems: Comprehensive ROS is negative, except as noted in HPI. ED EXAM, ENT - Physical Exam Exam: See Below Exam Limited By: No Limitations General Appearance: Alert, WD/WN, No Apparent Distress Eye Exam: Bilateral Eye: Normal Inspection Nose: Dried Blood, Other (Left nasal airway has small amount of dried blood with a tiny amount of oozine from a large clot deep in the anterior chamber.) Mouth/Throat: Normal Inspection Head: Atraumatic, Normocephalic Neck: Normal Inspection Respiratory/Chest: No Respiratory Distress Cardiovascular: Regular Rate, Rhythm Neurological: Alert, Oriented, CN II-XII Intact, Normal Cognition, No Motor/Sensory Deficits Psychiatric: Normal Mood Skin: Warm, Dry, Intact, Normal Color, No Rash Course - Vital Signs Last Recorded V/S: Last Vital Signs Temp 98.5 F 06/28/20 09:49 Pulse 93 06/28/20 09:49 Resp 18 06/28/20 09:49 BP Pulse Ox 100 06/28/20 09:49 - Orders/Labs/Meds Orders: Active Orders 24 hr Category Date Time Status Lidocaine 1% w/EPINEPHrine [Xylocaine 1% with Med 06/28/20 10:09 Once EPINEPHrine 1:100,000] 20 ml .XX ONETIME ONE Oxymetazoline [Nasal Decongestant [place]] Med 06/28/20 10:09 Once 30 ml FEMI ONETIME ONE Medication Orders Lidocaine/Epinephrine (Xylocaine 1% With Epinephrine 1:100,000) 20 ml .XX ONET PETAR ONE Stop: 06/28/20 10:10 Oxymetazoline HCl (Nasal Decongestant [place]) 30 ml FEMI ONETIME ONE Stop: 06/28/20 10:10 Meds: Medications Generic Name Dose Route Start Last Admin Trade Name Freq PRN Reason Stop Dose Admin Lidocaine/Epinephrine 20 ml 06/28/20 10:09 Xylocaine 1% With Epinephrine 1:100,000 .XX 06/28/20 10:10 ONETIME ONE Oxymetazoline HCl 30 ml 06/28/20 10:09 Nasal Decongestant [place] FEMI 06/28/20 10:10 ONETIME ONE - Re-Assessments/Exams Free Text/Narrative Re-Assessment/Exam: 06/28/20 10:24 No active bleeding, no procedural treatment by physician needed. Departure - Departure Time of Disposition: 10:11 Disposition: Home, Self-Care 01 Condition: Good Clinical Impression: Epistaxis - Discharge Information *PRESCRIPTION DRUG MONITORING PROGRAM REVIEWED*: Not Applicable *COPY OF PRESCRIPTION DRUG MONITORING REPORT IN PATIENT ARELI: Not Applicable Instructions: Nosebleed, Adult Forms: ED Department Discharge Additional Instructions: Oxymetazoline + Lidocaine-Epinephrine 1% Nasal [place]: Use one spray as needed for nose bleed. May repeat 2 or 3 large sprays into affected nostril if nose bleed is persistent or recurrent. Use a dab of Vaseline in the nostrils at bedtime. Return to ER if nose bleed returns and cannot be stopped at home with the spray and squeezing within 30 minutes. Sepsis Event Note (ED) - Focused Exam Vital Signs: Vital Signs Temp Pulse Resp Pulse Ox 06/28/20 09:49 98.5 F 93 18 100 - My Orders Last 24 Hours: My Active Orders 06/28/20 10:09 Lidocaine 1% w/EPINEPHrine [Xylocaine 1% with EPINEPHrine 1:100,000] 20 ml .XX ONETIME ONE Oxymetazoline [Nasal Decongestant [place]] 30 ml FEMI ONETIME ONE - Assessment/Plan Last 24 Hours: My Active Orders 06/28/20 10:09 Lidocaine 1% w/EPINEPHrine [Xylocaine 1% with EPINEPHrine 1:100,000] 20 ml .XX ONETIME ONE Oxymetazoline [Nasal Decongestant [place]] 30 ml FEMI ONETIME ONE
[2020-06-28] MEDS ORDERED: Oxymetazoline 0.05% Nasal Spray 30 ML Bottle NAS ONE (10:09)
[2020-06-28] MEDS ORDERED: Lidocaine 1% with EPINEPHrine 1:100,000 20 ML MDV ONE (10:09)
== END 2020-06-28 10:44 | disposition home or self-care (01) ==
LOC: DL.ED 09:47
DX: R04.0 Epistaxis (principal); I10 Essential (primary) hypertension; K21.9 Gastro-esophageal reflux disease without esophagitis; E11.9 Type 2 diabetes mellitus without complications; N40.0 Benign prostatic hyperplasia without lower urinary tract symptoms; Z79.84 Long term (current) use of oral hypoglycemic drugs; Z79.02 Long term (current) use of antithrombotics/antiplatelets; Z79.82 Long term (current) use of aspirin; Z79.899 Other long term (current) drug therapy; Z88.0 Allergy status to penicillin; Z95.5 Presence of coronary angioplasty implant and graft
CPT/HCPCS: 99283; A9270

== ENCOUNTER 2020-10-15 07:11 | Emergency (ER) | payer MEDICARE, OTHER ==
--- NOTE | 2020-10-15 07:20 | EDM.PDOC ---
ED HPI GENERAL MEDICAL PROBLEM - General Chief Complaint: Chest Pain Stated Complaint: IN BY AMBULANCE Time Seen by Provider: 10/15/20 07:20 Source of Information: Reports: Patient, EMS, Old Records, RN, RN Notes Reviewed History Limitations: Reports: No Limitations - History of Present Illness INITIAL COMMENTS - FREE TEXT/NARRATIVE: Patient presents to the ED via [facility] with complaints of midepigastric pain. The patient reports a history of small-cell lung cancer for which he has received radiation and chemotherapy; his last round of chemo was three weeks ago and it was his final round. The patient states the pain began early this morning, he is unsure of the time of onset but notes it did not wake him up. He characterizes the pain as a burning which waxes and wanes. He notes the pain began in his stomach, radiated into his right chest and shoulder, and is now in his midepigastric area. He has taken an antiemetic medication for this pain but no analgesics. He has not experienced pain similar to this in the past. He denies aggravating factors but notes the pain improved when the EMS crew "...stood me up." He rates the pain at an 8/10. He denies fever, shaking chills, palpitations, shortness of breath, vomiting, dysuria, hematuria, diarrhea, melena, or hematochezia. He does attest to constipation and notes he received an enema last night with no results. His last meal was yesterday and he is unsure of his last bowel movement. Abdomen Pain Score (Numeric/FACES): 10 - Related Data Allergies Allergy/AdvReac Type Severity Reaction Status Date / Time Penicillins Allergy unknown Verified 09/01/20 09:06 Home Meds: Home Meds Ascorbic Acid [Vitamin C] 500 mg PO DAILY 04/10/20 [History] Aspirin [Aspirin EC] 81 mg PO BEDTIME 04/10/20 [History] Cholecalciferol (Vitamin D3) [Vitamin D3] 100 mcg PO DAILY 04/10/20 [History] Cyanocobalamin (Vitamin B-12) [Vitamin B-12] 6,000 mcg PO DAILY 04/10/20 [History] Finasteride [Proscar] 5 mg PO DAILY 04/10/20 [History] Losartan [Cozaar] 100 mg PO DAILY 04/10/20 [History] Magnesium 2 tab PO DAILY 04/10/20 [History] Magnesium Glycinate [Mag Glycinate] 480 mg PO DAILY 04/10/20 [History] Metoprolol Succinate 100 mg PO DAILY 04/10/20 [History] Multivitamin 2 tab PO DAILY 04/10/20 [History] [place] 3,6,9 Combination No.7 [[place] Dha] 275 mg PO DAILY 04/10/20 [History] Sildenafil [Revatio] 20 mg PO ASDIRECTED PRN 04/10/20 [History] Zinc Gluconate [Zinc] 30 mg PO DAILY 04/10/20 [History] amLODIPine [Norvasc] 5 mg PO DAILY 04/10/20 [History] atorvaSTATin Calcium [Atorvastatin Calcium] 20 mg PO BEDTIME 04/10/20 [History] metFORMIN [Glucophage] 500 mg PO BID 04/10/20 [History] Nitroglycerin [Nitrostat] 0.4 mg SL ASDIRECTED PRN 05/02/20 [History] Clopidogrel Bisulfate [Plavix] 75 mg PO DAILY 06/28/20 [History] Pantoprazole Sodium [Protonix] 20 mg PO DAILY 06/28/20 [History] Tamsulosin HCl 0.4 mg PO DAILY 06/28/20 [History] Past Medical History HEENT History: Reports: Epistaxis Cardiovascular History: Reports: Hypertension, Stents Respiratory History: Reports: None Gastrointestinal History: Reports: GERD Genitourinary History: Reports: BPH, Retention, Urinary Other Genitourinary History: hematuria Musculoskeletal History: Reports: None Neurological History: Reports: None Psychiatric History: Reports: None Endocrine/Metabolic History: Reports: Diabetes, Type II Hematologic History: Reports: Other (See Below) Other Hematologic History: chemo induced neutropenia Immunologic History: Reports: None Oncologic (Cancer) History: Reports: None, Lung Other Oncologic History: small cell lung cancer. Dermatologic History: Reports: None - Infectious Disease History Infectious Disease History: Reports: Chicken Pox - Past Surgical History Head Surgeries/Procedures: Reports: None Cardiovascular Surgical History: Reports: Coronary Artery Stent Male Surgical History: Reports: TURP-Transurethral Resection of Prostate Social & Family History - Family History Family Medical History: No Pertinent Family History - Caffeine Use Caffeine Use: Reports: Coffee - Living Situation & Occupation Occupation: Retired ED ROS GENERAL - Review of Systems Review Of Systems: Comprehensive ROS is negative, except as noted in HPI. ED EXAM, GENERAL - Physical Exam Exam: See Below Exam Limited By: No Limitations General Appearance: Alert, No Apparent Distress, Cachetic Eye Exam: Bilateral Eye: EOMI, Normal Inspection, PERRL (3mm) Nose: Normal Inspection, Normal Mucosa, No Blood Throat/Mouth: Normal Inspection, Normal Voice, No Airway Compromise Head: Atraumatic, Normocephalic Neck: Normal Inspection, Supple, Non-Tender, Full Range of Motion Respiratory/Chest: No Respiratory Distress, Lungs Clear, Normal Breath Sounds, No Accessory Muscle Use, Chest Non-Tender Cardiovascular: Normal Peripheral Pulses, Regular Rate, Rhythm, No Edema, No Gallop, No JVD, No Murmur, No Rub Peripheral Pulses: 2+: Radial (L), Radial (R), Dorsalis Pedis (L), Dorsalis Pedis (R) GI/Abdominal: No Mass, Pelvis Stable, Distended, Tender (Diffuse to abdomen), Abnormal Bowel Sounds (Hypoactive bowel sounds) (Male) Exam: No Hernia, Normal Inspection Rectal (Males) Exam: Normal Exam, Other (Erythema and mild excoriation to sacrum) Back Exam: Normal Inspection, Full Range of Motion. No: CVA Tenderness (L), CVA Tenderness (R) Extremities: Normal Inspection, Normal Range of Motion, Non-Tender, Normal Capillary Refill, No Pedal Edema Neurological: Alert, Oriented, CN II-XII Intact, Normal Cognition, No Motor/Sensory Deficits Psychiatric: Normal Mood, Flat Affect Skin Exam: Warm, Dry, Intact, Erythema (To sacrum), Wound/Incision (Erythema and mild excoriation to sacrum; No open pressure sores identified). No: Jaundice, Mottled, Pallor, Petechiae #1 Interpretation EKG Date: 10/15/20 Time: 07:22 Rhythm: NSR Rate (Beats/Min): 85 [place]: Normal P-Wave: Present QRS: Normal ST-T: Normal QT: Normal NH/PQ Interval: 0.155 Comparison: No Change EKG Interpretation Comments: NSR; No evidence of acute myocardial ischemia Course - Vital Signs Last Recorded V/S: Last Vital Signs Temp 97.9 F 10/15/20 13:52 Pulse 78 10/15/20 13:52 Resp 18 10/15/20 13:52 BP 150/74 H 10/15/20 13:30 Pulse Ox 99 10/15/20 13:52 - Orders/Labs/Meds Labs: Laboratory Tests 10/15/20 10/15/20 10/15/20 Range/Units 07:34 07:34 07:34 WBC 6.2 (5.0-10.0) 10^3/uL RBC 3.96 L (4.6-6.2) 10^6/uL Hgb 12.0 L (14.0-18.0) g/dL Hct 36.5 L (40.0-54.0) % MCV 92.2 D (80-100) fL MCH 30.3 (27.0-34.0) pg MCHC 32.9 L (33.0-35.0) g/dL Plt Count 232 (150-450) 10^3/uL Neut % (Auto) 76.2 H (42.2-75.2) % Lymph % (Auto) 11.7 L (20.5-50.1) % [place] % (Auto) 10.5 H (2-8) % Eos % (Auto) 1.3 (1.0-3.0) % Baso % (Auto) 0.3 (0.0-1.0) % PT 10.8 (9.0-12.0) SEC INR 1.1 (0.9-1.2) APTT 21.2 L (22.0-34.0) SEC Sodium 130 L D (136-145) mmol/L Potassium 4.6 (3.5-5.1) mmol/L Chloride 92 L (98-107) mmol/L Carbon Dioxide 27 (21-32) mmol/L Anion Gap 15.6 H (7-13) mEq/L BUN 17 (7-18) mg/dL Creatinine 0.85 (0.70-1.30) mg/dL Est Cr Clr Drug Dosing TNP Estimated GFR (MDRD) > 60 BUN/Creatinine Ratio 20.0 (No establ ref range) Glucose 113 H (70-99) mg/dL Lactic Acid (0.4-2.0) mmol/L Calcium 8.7 (8.5-10.1) mg/dL Magnesium 1.2 L (1.8-2.4) mg/dL Total Bilirubin 1.1 H (0.2-1.0) mg/dL AST 176 H (15-37) U/L ALT 225 H (16-63) U/L Alkaline Phosphatase 427 H (46-116) U/L Troponin I < 0.017 (0.000-0.056) ng/mL C-Reactive Protein 1.6 H (0.0-0.9) mg/dL B-Natriuretic Peptide 86 (0-100) pg/ml Total Protein 7.4 (6.4-8.2) g/dL Albumin 3.2 L (3.4-5.0) g/dL Globulin 4.2 Albumin/Globulin Ratio 0.76 Amylase 25 (25-115) U/L Lipase 126 (73-393) U/L 10/15/20 Range/Units 07:34 WBC (5.0-10.0) 10^3/uL RBC (4.6-6.2) 10^6/uL Hgb (14.0-18.0) g/dL Hct (40.0-54.0) % MCV (80-100) fL MCH (27.0-34.0) pg MCHC (33.0-35.0) g/dL Plt Count (150-450) 10^3/uL Neut % (Auto) (42.2-75.2) % Lymph % (Auto) (20.5-50.1) % [place] % (Auto) (2-8) % Eos % (Auto) (1.0-3.0) % Baso % (Auto) (0.0-1.0) % PT (9.0-12.0) SEC INR (0.9-1.2) APTT (22.0-34.0) SEC Sodium (136-145) mmol/L Potassium (3.5-5.1) mmol/L Chloride (98-107) mmol/L Carbon Dioxide (21-32) mmol/L Anion Gap (7-13) mEq/L BUN (7-18) mg/dL Creatinine (0.70-1.30) mg/dL Est Cr Clr Drug Dosing Estimated GFR (MDRD) BUN/Creatinine Ratio (No establ ref range) Glucose (70-99) mg/dL Lactic Acid 2.2 H* (0.4-2.0) mmol/L Calcium (8.5-10.1) mg/dL Magnesium (1.8-2.4) mg/dL Total Bilirubin (0.2-1.0) mg/dL AST (15-37) U/L ALT (16-63) U/L Alkaline Phosphatase (46-116) U/L Troponin I (0.000-0.056) ng/mL C-Reactive Protein (0.0-0.9) mg/dL B-Natriuretic Peptide (0-100) pg/ml Total Protein (6.4-8.2) g/dL Albumin (3.4-5.0) g/dL Globulin Albumin/Globulin Ratio Amylase (25-115) U/L Lipase (73-393) U/L Meds: Medications Discontinued Medications Generic Name Dose Route Start Last Admin Trade Name Freq PRN Reason Stop Dose Admin Acetaminophen 1,000 mg 10/15/20 07:59 10/15/20 08:13 Acetaminophen 500 Mg Tab PO 10/15/20 08:00 500 mg ONETIME ONE Administration Bisacodyl 10 mg 10/15/20 10:17 10/15/20 11:10 Bisacodyl 10 Mg Supp RECTAL 10/15/20 10:18 10 mg ONETIME ONE Administration Magnesium Sulfate 2 gm in 50 mls @ 25 mls/hr 10/15/20 08:17 10/15/20 08:45 Magnesium Sulfate In Water 2 Gm/50 Ml IV 10/15/20 10:16 25 mls/hr ONETIME ONE Administration Sodium Chloride 1,000 mls @ 500 mls/hr 10/15/20 10:16 10/15/20 10:31 Normal Saline IV 10/15/20 12:15 500 mls/hr .BOLUS ONE Administration Magnesium Sulfate 2 gm in 50 mls @ 25 mls/hr 10/15/20 10:16 10/15/20 10:31 Magnesium Sulfate In Water 2 Gm/50 Ml IV 10/15/20 12:15 25 mls/hr ONETIME ONE Administration Iopamidol 100 ml 10/15/20 08:35 10/15/20 08:43 Iopamidol 612 Mg/Ml 100 Ml Bottle IVPUSH 10/15/20 08:36 75 ml ONETIME ONE Administration - Radiology Interpretation Free Text/Narrative:: [facility] Final Radiology Report Call: [phone] assistance Online chat: [email or web address] Name: DANE NG Age: 70Years M Date: 10/15/2020 SSN: -- : [id number] Study: CT ABDOMEN PELVIS W CONT Requesting Physician: Shruti Reddy Images: [id number] Addl Studies: Provided Clinical History: r/o obstruction; Diffuse abdominal pain Contrast: With Contrast Medium: Isovue 300 Contrast Amount: 75 mL Contrast Method: Intravenous (IV) Page 1 of 2 PROCEDURE INFORMATION: Exam: CT Abdomen And Pelvis With Contrast Exam date and time: 10/15/2020 8:29 AM Age: 70 years old Clinical indication: Other: R/O obstruction; Diffuse abdominal pain; Prior surgery; Surgery date: 6+ months; Surgery type: Prostate; Patient HX: HX chemotherapy for lung cancer TECHNIQUE: Imaging protocol: Computed tomography of the abdomen and pelvis with contrast. Radiation optimization: All CT scans at this facility use at least one of these dose optimization techniques: automated exposure control; mA and/or kV adjustment per patient size (includes targeted exams where dose is matched to clinical indication); or iterative reconstruction. Contrast material: ISOVUE 300; Contrast volume: 75 ml; Contrast route: INTRAVENOUS (IV); COMPARISON: CT Chest Abdomen Pelvis w Cont 07/03/2020 FINDINGS: Tubes, catheters and devices: Central line tip in proximal SVC. Line Lungs: Intervally developed nodular opacities in lung bases, greater involving the left mid and lower lung/lingula. Motion artifacts degrade image quality. Heart: Unchanged normal heart size with coronary artery and mitral annular calcifications. Trace pericardial effusion. Liver: Marked interval progression /development of metastatic disease throughout both lobes of the liver. Gallbladder and bile ducts: Intervally partially contracted gallbladder. No discrete gallstone. Pancreas: Unchanged normal pancreas. Spleen: Unchanged normal spleen. Adrenal glands: Line unchanged normal adrenals. DANE NG | Final Radiology Report CONFIDENTIALITY STATEMENT This report is intended only for use by the referring physician, and only in accordance with law. If you received this in error, call [phone]. Page 2 of 2 Kidneys and ureters: Unchanged normal appearing kidneys with sub cm, benign, renal cysts. Extrarenal pelvis of each kidney. No obstructive uropathy. Stomach and bowel: Incompletely distended stomach. Nonobstructed small bowel. Moderate colonic feces. Appendix: No inflamed appendix. Intraperitoneal space: No free air, ascites, or abscess. Vasculature: Unchanged atherosclerosis and arterial vasculature. Lymph nodes: Intervally worsened periaortic, mesenteric root, charly hepatis, pericaval and retroperitoneal adenopathy. Urinary bladder: Similar moderate bladder with small bladder cystocele. Reproductive: Unchanged prostatectomy. Bones/joints: Similar, multiple sclerotic bone lesions suggestive of osteoblastic metastases. Soft tissues: Unremarkable. IMPRESSION: 1. Intervally developed/marked progression of diffuse hepatic metastases. 2. Intervally progressed retroperitoneal, pericaval, mesenteric root, and perihepatic metastatic adenopathy. 3. Similar diffuse sclerotic bone lesions or osteoblastic metastases. 4. Probable intervally developed/worsened lingular and pulmonary parenchymal metastases. Thank you for allowing us to participate in the care of your patient. Dictated and Authenticated by: Dnae Daniel MD 10/15/2020 9:24 AM Central Time ([place] & [place]) - Re-Assessments/Exams Free Text/Narrative Re-Assessment/Exam: 10/15/20 Patient's presents to the ED following EMS and states the patient has been experiencing abdominal pain for about one week; she does not feel his issue is constipation as he has had bowel movements daily with MiraLax. She notes he does not take his prescribed narcotics as they constipate him. He is, however, taking medical marijuana via suppository BID. She is able to provide previous labs via [facility]; liver enzymes on 09/17 WNL, liver enzymes on 10/08 elevated with Alk Phos 274, AST 104, and ALT 148. He was to receive Immunotherapy last week, but was unable d/t liver enzymes. Today liver enzymes remained elevated with Alk Phos 427, AST 176, and ALT 225. Total Bili 1.1 Amylase and Lipase WNL Kidney function appropriate via CMP. Na and Mag at 130 and 1.2, respectively. Lactic acid 2.2 Will rehydrate patient with NS 1L bolus and replace Mag via IVPB. CT abodmen/pelvis reveals metastases throughout the liver, retroperitoneum, pericaval, mesenteric root, bone, and lung parenchyma. Large burden of stool also appreciated. Discussed findings of examination, lab work, and imaging with patient and . Will treat constipation with suppository and move patient to extended stay for rehydration and magnesium replacement. Patient did not have results with suppository while here, but states marked improvement in abdominal pain. Will send prescription for daily suppositories. Patient and instructed to follow up today with oncologist given findings o f imaging. Additionally, patient instructed to use previously prescribed analgesics for pain relief and increase water/fiber intake as well. Red flag signs and symptoms which would warrant reevaluation reviewed. Patient verbalized understanding and agreement with the plan of care. Departure - Departure Time of Disposition: 13:50 Disposition: Home, Self-Care 01 Condition: Good Clinical Impression: History of primary small cell carcinoma of lung, Liver metastases, Cancer, metastatic to bone, Hypomagnesemia Cancer, metastatic Qualifiers: Area of secondary neoplastic involvement: lymph node Lymph node location: multiple regions Qualified Code(s): C77.8 - Secondary and unspecified malignant neoplasm of lymph nodes of multiple regions Constipation Qualifiers: Constipation type: unspecified constipation type Qualified Code(s): K59.00 - Constipation, unspecified Instructions: Constipation, Adult, [id number] Referrals: Carrie Bates NP [Primary Care Provider] - Forms: ED Department Discharge Additional Instructions: Rx: Bisacodyl Suppositories 1.) Follow up with Dr. Escalante this week regarding today's visit and ongoing pain management. 2.) Drink plenty of water stay hydrated. 3.) Continue with previously prescribed pain medications.
[2020-10-15] MEDS ORDERED: Acetaminophen 500 MG Tab PO ONE (07:59)
[2020-10-15 08:05] LABS: PTT,PARTIAL THROMBOPLSTIN TIME 21.2 SEC (22.0-34.0)
[2020-10-15 08:07] LABS: ANION GAP 15.6 mEq/L (7-13); CHLORIDE,CL 92 mmol/L (98-107); SODIUM,NA 130 mmol/L (136-145)
[2020-10-15] MEDS ORDERED: Magnesium Sulfate/Water 2 GM/50 ML BAG IV ONE ×2 (08:17→10:16)
[2020-10-15] MEDS ORDERED: Iopamidol 612 MG/ML 100 ML Bottle IVPUSH ONE (08:35)
--- NOTE | 2020-10-15 09:25 | CT ---
PROCEDURE INFORMATION: Exam: CT Abdomen And Pelvis With Contrast Exam date and time: 10/15/2020 8:29 AM Age: 70 years old Clinical indication: Other: R/O obstruction; Diffuse abdominal pain; Prior surgery; Surgery date: 6+ months; Surgery type: Prostate; Patient HX: HX chemotherapy for lung cancer TECHNIQUE: Imaging protocol: Computed tomography of the abdomen and pelvis with contrast. Radiation optimization: All CT scans at this facility use at least one of these dose optimization techniques: automated exposure control; mA and/or kV adjustment per patient size (includes targeted exams where dose is matched to clinical indication); or iterative reconstruction. Contrast material: ISOVUE 300; Contrast volume: 75 ml; Contrast route: INTRAVENOUS (IV); COMPARISON: CT Chest Abdomen Pelvis w Cont 07/03/2020 FINDINGS: Tubes, catheters and devices: Central line tip in proximal SVC. Line Lungs: Intervally developed nodular opacities in lung bases, greater involving the left mid and lower lung/lingula. Motion artifacts degrade image quality. Heart: Unchanged normal heart size with coronary artery and mitral annular calcifications. Trace pericardial effusion. Liver: Marked interval progression /development of metastatic disease throughout both lobes of the liver. Gallbladder and bile ducts: Intervally partially contracted gallbladder. No discrete gallstone. Pancreas: Unchanged normal pancreas. Spleen: Unchanged normal spleen. Adrenal glands: Line unchanged normal adrenals. Kidneys and ureters: Unchanged normal appearing kidneys with sub cm, benign, renal cysts. Extrarenal pelvis of each kidney. No obstructive uropathy. Stomach and bowel: Incompletely distended stomach. Nonobstructed small bowel. Moderate colonic feces. Appendix: No inflamed appendix. Intraperitoneal space: No free air, ascites, or abscess. Vasculature: Unchanged atherosclerosis and arterial vasculature. Lymph nodes: Intervally worsened periaortic, mesenteric root, charly hepatis, pericaval and retroperitoneal adenopathy. Urinary bladder: Similar moderate bladder with small bladder cystocele. Reproductive: Unchanged prostatectomy. Bones/joints: Similar, multiple sclerotic bone lesions suggestive of osteoblastic metastases. Soft tissues: Unremarkable. IMPRESSION: 1. Intervally developed/marked progression of diffuse hepatic metastases. 2. Intervally progressed retroperitoneal, pericaval, mesenteric root, and perihepatic metastatic adenopathy. 3. Similar diffuse sclerotic bone lesions or osteoblastic metastases. 4. Probable intervally developed/worsened lingular and pulmonary parenchymal metastases.
[2020-10-15] MEDS ORDERED: Sodium Chloride 0.9% 1,000 ML IV ONE (10:16)
[2020-10-15] MEDS ORDERED: Bisacodyl 10 MG Supp RECTAL ONE (10:17)
== END 2020-10-15 14:25 | disposition home or self-care (01) ==
LOC: DL.ED 07:11
DX: K59.00 Constipation, unspecified (principal); C79.51 Secondary malignant neoplasm of bone; C78.7 Secondary malignant neoplasm of liver and intrahepatic bile duct; E83.42 Hypomagnesemia; I10 Essential (primary) hypertension; K21.9 Gastro-esophageal reflux disease without esophagitis; Z79.82 Long term (current) use of aspirin; E11.9 Type 2 diabetes mellitus without complications; Z88.0 Allergy status to penicillin; Z95.5 Presence of coronary angioplasty implant and graft; Z79.899 Other long term (current) drug therapy; Z85.118 Personal history of other malignant neoplasm of bronchus and lung
CPT/HCPCS: 36415; 74177; 80053; 82150; 83605; 83690; 83735; 83880; 84484; 85025; 85610; 85730; 86140; 93005; 93010; 96365; 96366; 99285; 99285-25; A9270-GY; J3475; J7030; Q9967

== ENCOUNTER 2020-11-08 07:11 | Emergency (ER) | payer MEDICARE, OTHER ==
[2020-11-08 08:01] LABS: ANION GAP 15.7 mEq/L (7-13); CHLORIDE,CL 101 mmol/L (98-107); SODIUM,NA 139 mmol/L (136-145)
[2020-11-08 08:23] LABS: CORONAVIRUS COVID-19 NAA NEGATIVE (NEGATIVE)
--- NOTE | 2020-11-08 08:23 | EDM.PDOC ---
ED HPI GENERAL MEDICAL PROBLEM - General Chief Complaint: Abdominal Pain Stated Complaint: IN BY AMBULANCE Time Seen by Provider: 11/08/20 07:35 Source of Information: Reports: Patient, EMS, Family, Old Records History Limitations: Reports: Other (Limited interaction with patient (responded with one word answers)) - History of Present Illness INITIAL COMMENTS - FREE TEXT/NARRATIVE: This 70 yo male patient was brought to the ED by [facility] due to abdominal pain. EMS reported the patient's pain level was 10/10 upon arrival. No treatments were given enroute. Upon arrival in the ED, the patient did have a blood clot outside of the urethra and was incontinent of urine and stool. The patient reported his pain was improved upon arrival in the ED. 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 The patient's reports the patient has been doing pretty well at home. The patient has a scan scheduled for November to determine the progress of the cancer and treatments. The patient interacted with brief responses to his . Onset: Today Duration: Resolved Prior to Arrival Location: Reports: Abdomen Quality: Reports: Ache Severity: Severe - Related Data Allergies Allergy/AdvReac Type Severity Reaction Status Date / Time Penicillins Allergy unknown Verified 11/08/20 07:20 Home Meds: Home Meds Ascorbic Acid [Vitamin C] 500 mg PO DAILY 04/10/20 [History] Aspirin [Aspirin EC] 81 mg PO BEDTIME 04/10/20 [History] Cholecalciferol (Vitamin D3) [Vitamin D3] 100 mcg PO DAILY 04/10/20 [History] Cyanocobalamin (Vitamin B-12) [Vitamin B-12] 6,000 mcg PO DAILY 04/10/20 [History] Finasteride [Proscar] 5 mg PO DAILY 04/10/20 [History] Losartan [Cozaar] 100 mg PO DAILY 04/10/20 [History] Magnesium 500 mg PO DAILY 04/10/20 [History] Magnesium Glycinate [Mag Glycinate] 480 mg PO DAILY 04/10/20 [History] Metoprolol Succinate 100 mg PO DAILY 04/10/20 [History] Multivitamin 2 tab PO DAILY 04/10/20 [History] Sildenafil [Revatio] 20 mg PO ASDIRECTED PRN 04/10/20 [History] Zinc Gluconate [Zinc] 30 mg PO DAILY 04/10/20 [History] amLODIPine [Norvasc] 5 mg PO DAILY 04/10/20 [History] metFORMIN [Glucophage] 500 mg PO BIDMEALS 04/10/20 [History] Nitroglycerin [Nitrostat] 0.4 mg SL ASDIRECTED PRN 05/02/20 [History] Clopidogrel Bisulfate [Plavix] 75 mg PO DAILY 06/28/20 [History] Pantoprazole Sodium [Protonix] 20 mg PO DAILY 06/28/20 [History] Tamsulosin HCl 0.4 mg PO DAILY 06/28/20 [History] Allopurinol [Zyloprim] 300 mg PO ASDIRECTED 11/08/20 [History] Past Medical History HEENT History: Reports: Epistaxis Cardiovascular History: Reports: Hypertension, Stents Respiratory History: Reports: Other (See Below) Other Respiratory History: small cell lung ca Gastrointestinal History: Reports: GERD Genitourinary History: Reports: BPH, Retention, Urinary Other Genitourinary History: hematuria Musculoskeletal History: Reports: None Neurological History: Reports: None Psychiatric History: Reports: None Endocrine/Metabolic History: Reports: Diabetes, Type II Hematologic History: Reports: Blood Transfusion(s), Other (See Below) Other Hematologic History: chemo induced neutropenia Immunologic History: Reports: None Oncologic (Cancer) History: Reports: None, Lung Other Oncologic History: small cell lung cancer. Dermatologic History: Reports: None - Infectious Disease History Infectious Disease History: Reports: Chicken Pox - Past Surgical History Head Surgeries/Procedures: Reports: None HEENT Surgical History: Reports: None Cardiovascular Surgical History: Reports: Coronary Artery Stent Respiratory Surgical History: Reports: Lung Biopsies GI Surgical History: Reports: None Male Surgical History: Reports: TURP-Transurethral Resection of Prostate Neurological Surgical History: Reports: None Oncologic Surgical History: Reports: None Social & Family History - Family History Family Medical History: No Pertinent Family History - Tobacco Use Tobacco Use Status *Q: Never Tobacco User - Caffeine Use Caffeine Use: Reports: Coffee - Recreational Drug Use Recreational Drug Use: No - Living Situation & Occupation Occupation: Retired ED ROS GENERAL - Review of Systems Review Of Systems: Comprehensive ROS is negative, except as noted in HPI. ED EXAM, GI/ABD - Physical Exam Exam: See Below Exam Limited By: No Limitations General Appearance: Alert, WD/WN, Thin, Other (The patient was resting for most of the visit. The patient would respond with one word responses to questions after he was awaken. ) Eyes: Bilateral: Normal Appearance, EOMI Ears: Normal External Exam, Normal Canal, Hearing Grossly Normal, Normal TMs Nose: Normal Inspection, Normal Mucosa, No Blood Throat/Mouth: Normal Inspection, Normal Lips, Normal Teeth, Normal Gums, Normal Oropharynx, Normal Voice, No Airway Compromise Head: Atraumatic, Normocephalic Neck: Normal Inspection, Supple, Non-Tender, Full Range of Motion Respiratory/Chest: No Respiratory Distress, Lungs Clear, Normal Breath Sounds, No Accessory Muscle Use, Chest Non-Tender Cardiovascular: Normal Peripheral Pulses, Regular Rate, Rhythm, No Edema, No Gallop, No JVD, No Murmur, No Rub GI/Abdominal Exam: Normal Bowel Sounds, Soft, Non-Tender, No Organomegaly, No Distention, No Abnormal Bruit, No Mass, Pelvis Stable (Male) Exam: Deferred Rectal (Males) Exam: Deferred Back Exam: Normal Inspection, Full Range of Motion, NT Extremities: Normal Inspection, Normal Range of Motion, Non-Tender, Normal Capillary Refill, No Pedal Edema Neurological: Other (The patient would respond with one word answers after he was awaken, but would go back to sleep after his response. The patient's reports that his response is not abnormal for him when he is tired and sleeping. ) Skin Exam: Warm, Dry, Intact, Normal Color, No Rash Lymphatic: No Adenopathy Course - Vital Signs Last Recorded V/S: Last Vital Signs Temp 97.4 F 11/08/20 07:20 Pulse 91 11/08/20 07:20 Resp 16 11/08/20 07:20 BP 147/69 H 11/08/20 07:20 Pulse Ox 97 11/08/20 07:20 - Orders/Labs/Meds Orders: Active Orders 24 hr Category Date Time Status CULTURE BLOOD [BC] Stat Lab 11/08/20 07:35 Received CULTURE URINE [RM] Urgent Lab 11/08/20 07:15 Received Labs: Laboratory Tests 11/08/20 11/08/20 11/08/20 Range/Units 07:15 07:34 07:35 WBC 8.1 (5.0-10.0) 10^3/uL RBC 3.62 L (4.6-6.2) 10^6/uL Hgb 10.6 L (14.0-18.0) g/dL Hct 33.1 L (40.0-54.0) % MCV 91.4 (80-100) fL MCH 29.3 (27.0-34.0) pg MCHC 32.0 L (33.0-35.0) g/dL Plt Count 246 (150-450) 10^3/uL Neut % (Auto) 72.5 (42.2-75.2) % Lymph % (Auto) 11.4 L (20.5-50.1) % [place] % (Auto) 14.9 H (2-8) % Eos % (Auto) 0.6 L (1.0-3.0) % Baso % (Auto) 0.6 (0.0-1.0) % Sodium (136-145) mmol/L Potassium (3.5-5.1) mmol/L Chloride (98-107) mmol/L Carbon Dioxide (21-32) mmol/L Anion Gap (7-13) mEq/L BUN (7-18) mg/dL Creatinine (0.70-1.30) mg/dL Est Cr Clr Drug Dosing mL/min Estimated GFR (MDRD) BUN/Creatinine Ratio (No establ ref range) Glucose (70-99) mg/dL Lactic Acid (0.4-2.0) mmol/L Calcium (8.5-10.1) mg/dL Magnesium (1.8-2.4) mg/dL Total Bilirubin (0.2-1.0) mg/dL AST (15-37) U/L ALT (16-63) U/L Alkaline Phosphatase (46-116) U/L Total Protein (6.4-8.2) g/dL Albumin (3.4-5.0) g/dL Globulin Albumin/Globulin Ratio Urine Color Red (YELLOW) Urine Appearance Turbid (CLEAR) Urine pH >= 9.0 (5.0-9.0) Ur Specific [place] 1.020 (1.005-1.030) Urine Protein 100 H (NEGATIVE) Urine Glucose (UA) Negative (NEGATIVE) Urine Ketones Trace H (NEGATIVE) Urine Occult Blood Large H (NEGATIVE) Urine Nitrite Negative (NEGATIVE) Urine Bilirubin Negative (NEGATIVE) Urine Urobilinogen 0.2 (0.2-1.0) mg/dL Ur Leukocyte Esterase Large H (NEGATIVE) Urine RBC Packed H /HPF Urine WBC Packed H (0-5/HPF) /HPF Ur Epithelial Cells Not seen (NOT SEEN) /HPF Urine Bacteria Many H (0-FEW/HPF) /HPF Influenza Type A RNA Negative (NEGATIVE) Influenza Type B RNA Negative (NEGATIVE) SARS-CoV-2 RNA (TAMMY) Negative (NEGATIVE) 11/08/20 11/08/20 11/08/20 Range/Units 07:35 07:35 07:35 WBC (5.0-10.0) 10^3/uL RBC (4.6-6.2) 10^6/uL Hgb (14.0-18.0) g/dL Hct (40.0-54.0) % MCV (80-100) fL MCH (27.0-34.0) pg MCHC (33.0-35.0) g/dL Plt Count (150-450) 10^3/uL Neut % (Auto) (42.2-75.2) % Lymph % (Auto) (20.5-50.1) % [place] % (Auto) (2-8) % Eos % (Auto) (1.0-3.0) % Baso % (Auto) (0.0-1.0) % Sodium 139 (136-145) mmol/L Potassium 3.7 (3.5-5.1) mmol/L Chloride 101 (98-107) mmol/L Carbon Dioxide 26 (21-32) mmol/L Anion Gap 15.7 H (7-13) mEq/L BUN 13 (7-18) mg/dL Creatinine 0.74 (0.70-1.30) mg/dL Est Cr Clr Drug Dosing 82.09 mL/min Estimated GFR (MDRD) > 60 BUN/Creatinine Ratio 17.6 (No establ ref range) Glucose 115 H (70-99) mg/dL Lactic Acid 1.7 (0.4-2.0) mmol/L Calcium 7.8 L (8.5-10.1) mg/dL Magnesium 1.4 L (1.8-2.4) mg/dL Total Bilirubin 0.9 (0.2-1.0) mg/dL AST 106 H (15-37) U/L ALT 80 H (16-63) U/L Alkaline Phosphatase 262 H (46-116) U/L Total Protein 6.4 (6.4-8.2) g/dL Albumin 2.4 L (3.4-5.0) g/dL Globulin 4.0 Albumin/Globulin Ratio 0.60 Urine Color (YELLOW) Urine Appearance (CLEAR) Urine pH (5.0-9.0) Ur Specific [place] (1.005-1.030) Urine Protein (NEGATIVE) Urine Glucose (UA) (NEGATIVE) Urine Ketones (NEGATIVE) Urine Occult Blood (NEGATIVE) Urine Nitrite (NEGATIVE) Urine Bilirubin (NEGATIVE) Urine Urobilinogen (0.2-1.0) mg/dL Ur Leukocyte Esterase (NEGATIVE) Urine RBC /HPF Urine WBC (0-5/HPF) /HPF Ur Epithelial Cells (NOT SEEN) /HPF Urine Bacteria (0-FEW/HPF) /HPF Influenza Type A RNA (NEGATIVE) Influenza Type B RNA (NEGATIVE) SARS-CoV-2 RNA (TAMMY) (NEGATIVE) Meds: Medications Discontinued Medications Generic Name Dose Route Start Last Admin Trade Name Freq PRN Reason Stop Dose Admin Magnesium Sulfate 2 gm/ Premix 50 mls @ 25 mls/hr 11/08/20 08:37 11/08/20 08:45 IV 11/08/20 10:36 25 mls/hr ONETIME ONE Administration - Re-Assessments/Exams Free Text/Narrative Re-Assessment/Exam: 11/08/20 09:47 Discussed the patient's situation with [facility] Carrie is aware of the patient and did speak with the patient yesterday. Carrie offered to have a phone conversation with the patient's about additional resources and further care plans. The patient's was encouraged to call Carrie Bates's nurse to set up a time for that conversation. Discussed the patient's history, examination, lab results and treatments with Dr. Raphael (Hospitalist at [facility] in [place]). Dr. Raphael would encourage the family to allow hospice to become involved in the patient's cares and care plan. The patient's was advised of these conversations. The patient stated she wo uld "think about it." Departure - Departure Time of Disposition: 10:38 Disposition: Home, Self-Care 01 Clinical Impression: Hypomagnesemia, Cancer, metastatic to bone, History of primary small cell carcinoma of lung, Liver metastases Urinary tract infection Qualifiers: Urinary tract infection type: site unspecified Hematuria presence: with hematuria Qualified Code(s): N39.0 - Urinary tract infection, site not specified Incontinence of bowel Qualifiers: Fecal incontinence type: unspecified Qualified Code(s): R15.9 - Full incontinence of feces Incontinence of urine Qualifiers: Urinary Incontinence type: unspecified incontinence Qualified Code(s): R32 - Unspecified urinary incontinence - Discharge Information *PRESCRIPTION DRUG MONITORING PROGRAM REVIEWED*: Not Applicable *COPY OF PRESCRIPTION DRUG MONITORING REPORT IN PATIENT ARELI: Not Applicable Instructions: Hypomagnesemia, Urinary Tract Infection, Adult, [id number] Forms: ED Department Discharge Care Plan Goals: The patient's was advised of the examination and lab results during the visit. The patient was given IV Magensium while in the ED. The patient was discharged with a script for Macrobid (100 mg) to take 1 by mouth 2 times per day for 7 days for his urinary tract infection. The patient's was e ncouraged to call the patient's primary care provider (Carrie Bates) regarding further examination, treatment and resources. The patient's was encouraged to contact Hospice for any additional resources or assistance that can be given to the patient. If the patient has any additional symptoms or concerns, the patient should either return to the emergency department or visit his primary care facility. Sepsis Event Note (ED) - Evaluation Sepsis Screening Result: No Definite Risk - Focused Exam Vital Signs: Vital Signs Temp Pulse Resp BP Pulse Ox 11/08/20 07:20 97.4 F 91 16 147/69 H 97 - My Orders Last 24 Hours: My Active Orders 11/08/20 07:15 CULTURE URINE [RM] Urgent 11/08/20 07:35 CULTURE BLOOD [BC] Stat - Assessment/Plan Last 24 Hours: My Active Orders 11/08/20 07:15 CULTURE URINE [RM] Urgent 11/08/20 07:35 CULTURE BLOOD [BC] Stat
[2020-11-08] MEDS ORDERED: Magnesium Sulfate/Water 2 GM in Premix Bag 1 BAG IV ONE (08:37)
== END 2020-11-08 11:24 | disposition home or self-care (01) ==
LOC: DL.ED 07:11
DX: N39.0 Urinary tract infection, site not specified (principal); C41.9 Malignant neoplasm of bone and articular cartilage, unspecified; R15.9 Full incontinence of feces; R32 Unspecified urinary incontinence; I10 Essential (primary) hypertension; E11.9 Type 2 diabetes mellitus without complications; E83.42 Hypomagnesemia; Z85.118 Personal history of other malignant neoplasm of bronchus and lung; Z20.822 Contact with and (suspected) exposure to COVID-19; Z79.02 Long term (current) use of antithrombotics/antiplatelets; Z79.899 Other long term (current) drug therapy; Z88.0 Allergy status to penicillin; Z79.82 Long term (current) use of aspirin
CPT/HCPCS: 0240U; 36415; 80053; 81001; 82272; 83605; 83735; 85025; 87040; 87086; 87088; 87186; 96365; 96366; 99284; 99284-25; J3475

== ENCOUNTER 2020-11-13 05:55 | Emergency (ER) | payer MEDICARE, OTHER ==
[2020-11-13] MEDS ORDERED: EPINEPHrine 1:10,000 1 MG/10 ML Syringe IVPUSH ONE (05:56)
[2020-11-13] MEDS ORDERED: Sodium Bicarbonate 8.4% 50 MEQ/50 ML SDV IVPUSH ONE (05:56)
[2020-11-13] MEDS ORDERED: Sodium Bicarbonate 8.4% 50 MEQ/50 ML Syringe ONE (06:14)
[2020-11-13] MEDS ORDERED: EPINEPHrine 1:10,000 1 MG/10 ML Syringe ONE (06:15)
[2020-11-13 06:34] LABS: ANION GAP 23.4 mEq/L (7-13); CHLORIDE,CL 110 mmol/L (98-107); SODIUM,NA 151 mmol/L (136-145)
--- NOTE | 2020-11-14 06:54 | EDM.PDOC ---
ED HPI GENERAL MEDICAL PROBLEM - General Chief Complaint: CPR in Progress Time Seen by Provider: 11/13/20 06:00 Source of Information: Reports: EMS History Limitations: Reports: Other - History of Present Illness INITIAL COMMENTS - FREE TEXT/NARRATIVE: ED via [facility] CPR in progress. Patient was reported not breathing , unresponsive at 0551, EMS reported CPR initiated by family 15minutes prior. Hx prostate cancer with mets to lung bone and liver. EMS had given 5 Epi [employer], Initial rhythm on EMS arriva, V-tach. Asystole on arrival, Intubated. IV started - Related Data Allergies Allergy/AdvReac Type Severity Reaction Status Date / Time Penicillins Allergy unknown Verified 11/08/20 07:20 Home Meds: Home Meds Ascorbic Acid [Vitamin C] 500 mg PO DAILY 04/10/20 [History] Aspirin [Aspirin EC] 81 mg PO BEDTIME 04/10/20 [History] Cholecalciferol (Vitamin D3) [Vitamin D3] 100 mcg PO DAILY 04/10/20 [History] Cyanocobalamin (Vitamin B-12) [Vitamin B-12] 6,000 mcg PO DAILY 04/10/20 [History] Finasteride [Proscar] 5 mg PO DAILY 04/10/20 [History] Losartan [Cozaar] 100 mg PO DAILY 04/10/20 [History] Magnesium 500 mg PO DAILY 04/10/20 [History] Magnesium Glycinate [Mag Glycinate] 480 mg PO DAILY 04/10/20 [History] Metoprolol Succinate 100 mg PO DAILY 04/10/20 [History] Multivitamin 2 tab PO DAILY 04/10/20 [History] Sildenafil [Revatio] 20 mg PO ASDIRECTED PRN 04/10/20 [History] Zinc Gluconate [Zinc] 30 mg PO DAILY 04/10/20 [History] amLODIPine [Norvasc] 5 mg PO DAILY 04/10/20 [History] metFORMIN [Glucophage] 500 mg PO BIDMEALS 04/10/20 [History] Nitroglycerin [Nitrostat] 0.4 mg SL ASDIRECTED PRN 05/02/20 [History] Clopidogrel Bisulfate [Plavix] 75 mg PO DAILY 06/28/20 [History] Pantoprazole Sodium [Protonix] 20 mg PO DAILY 06/28/20 [History] Tamsulosin HCl 0.4 mg PO DAILY 06/28/20 [History] Allopurinol [Zyloprim] 300 mg PO ASDIRECTED 11/08/20 [History] Past Medical History HEENT History: Reports: Epistaxis Cardiovascular History: Reports: Hypertension, Stents Respiratory History: Reports: Other (See Below) Other Respiratory History: small cell lung ca Gastrointestinal History: Reports: GERD Genitourinary History: Reports: BPH, Retention, Urinary Other Genitourinary History: hematuria Musculoskeletal History: Reports: None Neurological History: Reports: None Psychiatric History: Reports: None Endocrine/Metabolic History: Reports: Diabetes, Type II Hematologic History: Reports: Blood Transfusion(s), Other (See Below) Other Hematologic History: chemo induced neutropenia Immunologic History: Reports: None Oncologic (Cancer) History: Reports: None, Lung Other Oncologic History: small cell lung cancer. Dermatologic History: Reports: None - Infectious Disease History Infectious Disease History: Reports: Chicken Pox - Past Surgical History Head Surgeries/Procedures: Reports: None HEENT Surgical History: Reports: None Cardiovascular Surgical History: Reports: Coronary Artery Stent Respiratory Surgical History: Reports: Lung Biopsies GI Surgical History: Reports: None Male Surgical History: Reports: TURP-Transurethral Resection of Prostate Neurological Surgical History: Reports: None Oncologic Surgical History: Reports: None Social & Family History - Family History Family Medical History: No Pertinent Family History - Caffeine Use Caffeine Use: Reports: Coffee - Living Situation & Occupation Occupation: Retired ED ROS GENERAL - Review of Systems Review Of Systems: Comprehensive ROS is negative, except as noted in HPI. ED EXAM, CPR - Physical Exam Exam: See Below Text/Narrative:: CPR in progress on arrival, Intubated, Bag Valve assist. Bilateral breathsounds bilateral. Pulse present with compressions. Monitor aystole No signs of trauma. Sign color diamond. Limited By: No Limitations General Appearance: Thin Eye Exam: Bilateral Eye: Other (pupils equal, fixed midline) Ears: Normal External Exam Head: Atraumatic, Normocephalic Course - Orders/Labs/Meds Labs: Laboratory Tests 11/13/20 11/13/20 11/13/20 Range/Units 06:02 06:02 06:02 WBC 19.8 H (5.0-10.0) 10^3/uL RBC 3.38 L (4.6-6.2) 10^6/uL Hgb 10.0 L (14.0-18.0) g/dL Hct 33.6 L (40.0-54.0) % MCV 99.4 D (80-100) fL MCH 29.6 (27.0-34.0) pg MCHC 29.8 L (33.0-35.0) g/dL Plt Count 235 (150-450) 10^3/uL Neut % (Auto) 73.3 (42.2-75.2) % Lymph % (Auto) 20.2 L (20.5-50.1) % [place] % (Auto) 6.3 (2-8) % Eos % (Auto) 0.0 L (1.0-3.0) % Baso % (Auto) 0.2 (0.0-1.0) % Add Manual Diff Yes Neutrophils % (Manual) 61 (42-75) % Band Neutrophils % 12 % Lymphocytes % (Manual) 22 (20-50) % Monocytes % (Manual) 3 (2-8) % Basophils % (Manual) 2 Nucleated RBCs 1 /100WBC Atypical Lymphocytes Few Toxic Granulation 1+ slight Platelet Estimate Adequate Anisocytosis 1+ slight PT 12.6 H (9.0-12.0) SEC INR 1.3 H (0.9-1.2) Sodium 151 H D (136-145) mmol/L Potassium 5.4 H D (3.5-5.1) mmol/L Chloride 110 H (98-107) mmol/L Carbon Dioxide 23 (21-32) mmol/L Anion Gap 23.4 H (7-13) mEq/L BUN 25 H (7-18) mg/dL Creatinine 1.30 (0.70-1.30) mg/dL Est Cr Clr Drug Dosing TNP Estimated GFR (MDRD) 54 BUN/Creatinine Ratio 19.2 (No establ ref range) Glucose 181 H (70-99) mg/dL Calcium 8.6 (8.5-10.1) mg/dL Total Bilirubin 0.9 (0.2-1.0) mg/dL AST 561 H (15-37) U/L ALT 347 H (16-63) U/L Alkaline Phosphatase 337 H (46-116) U/L Troponin I < 0.017 (0.000-0.056) ng/mL Total Protein 5.7 L (6.4-8.2) g/dL Albumin 2.0 L (3.4-5.0) g/dL Globulin 3.7 Albumin/Globulin Ratio 0.54 Meds: Medications Discontinued Medications Generic Name Dose Route Start Last Admin Trade Name Femi PRN Reason Stop Dose Admin Epinephrine HCl Confirm 11/13/20 06:15 Epinephrine 1:10,000 1 Mg/10 Ml Syringe Administered 11/13/20 06:16 Dose 3 mg .ROUTE .STK-MED ONE Sodium Bicarbonate Confirm 11/13/20 06:14 Sodium Bicarbonate 8.4% 50 Meq/50 Ml Syringe Administered 11/13/20 06:15 Dose 50 meq .ROUTE .STK-MED ONE - Re-Assessments/Exams Free Text/Narrative Re-Assessment/Exam: No response to CPR, compression or respiratory assist. No response with medications. Remains in asystole with pulse checks [address] welsh notified. Family here. Notified patients expirations. 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
== END 2020-11-13 08:05 | disposition expired ==
LOC: DL.ED 05:55
DX: I46.9 Cardiac arrest, cause unspecified (principal); C77.8 Secondary and unspecified malignant neoplasm of lymph nodes of multiple regions; I10 Essential (primary) hypertension; N40.0 Benign prostatic hyperplasia without lower urinary tract symptoms; E11.9 Type 2 diabetes mellitus without complications; K21.9 Gastro-esophageal reflux disease without esophagitis; Z79.84 Long term (current) use of oral hypoglycemic drugs; Z79.02 Long term (current) use of antithrombotics/antiplatelets; Z88.0 Allergy status to penicillin; Z79.82 Long term (current) use of aspirin; Z79.899 Other long term (current) drug therapy
CPT/HCPCS: 36415; 80053; 84484; 85025; 85610; 92950; 99285; J0171